=== PATIENT | female | born 1965 | race American Indian/Alaskan Native ===

== ENCOUNTER 2018-09-09 16:33 | Inpatient (IN) | payer MEDICARE ==
[2018-09-09] MEDS ORDERED: NACL 0.9% 1000 ML 1,000 ML IV ONE (17:16)
[2018-09-09 17:31] LABS: Basophils # (Auto) 0.1 K/mm3 (0.0-0.1); Basophils % (Auto) 1.4 % (0.0-1.8); Eosinophils # (Auto) 0.1 K/mm3 (0.0-0.4); Eosinophils % (Auto) 1.1 % (0.0-4.3); Hematocrit 43.3 % (30.3-42.9); Lymphocytes # (Auto) 2.1 K/mm3 (1.2-5.4); Mean Corpuscular HGB Conc 32 % (30-34); Mean Corpuscular Volume 82 fl (79-97); Monocytes # (Auto) 0.4 K/mm3 (0.0-0.8); Monocytes % (Auto) 5.2 % (0.0-7.3); Platelet Count 250 K/mm3 (140-440); Red Blood Count 5.27 M/mm3 (3.65-5.03); Red Cell Distribution Width 13.3 % (13.2-15.2)
--- NOTE | 2018-09-09 17:32 | Emergency Department Report ---
ED Chest Pain HPI - General Stated Complaint: CHEST PAIN Time Seen by Provider: 09/09/18 17:03 - History of Present Illness Initial Comments: This -[place] female presents to the emergency department via EMS with complaint of some midsternal to left-sided chest pain, shortness of breath. She says it is a kicking/tightness sensation. It is intermittent and has been going on for the past month but worsened over the past 24 hours. She did not take anything for her symptoms prior to arrival. She has a past medical history of diabetes, hypertension and COPD but is not oxygen dependent. Her primary care physician is a Dr. Gabriel, and she does not have a animal daycare provider. No recent travel or sick contacts at home. She denies any tobacco or illicit drug use or abuse. - Related Data Home Medications Medication Instructions Recorded Confirmed Last Taken Ipratropium/Albuterol Sulfate 1 ampul INHALATION Q4HR PRN 12/26/15 12/26/15 12/26/15 [Duoneb 0.5 mg-3 mg/3 ml Soln] Previous Rx's Medication Instructions Recorded Last Taken Type ALBUTEROL Inhaler (OR & NICU) 2 puff IH QID PRN #1 inhalation 09/24/15 12/26/15 Rx [ProAir HFA Inhaler] metFORMIN [Glucophage] 500 mg PO BID #60 tablet 09/24/15 12/25/15 Rx HYDROcodone/APAP 5-325 [[place] 1 each PO Q6HR PRN #20 tablet 12/26/15 Unknown Rx 5/325] Ibuprofen [Motrin] 800 mg PO Q8HR PRN #30 tablet 12/26/15 Unknown Rx Allergies Allergy/AdvReac Type Severity Reaction Status Date / Time amlodipine Allergy Coughing Verified 09/09/18 17:29 hydrochlorothiazide Allergy Shortness Verified 09/09/18 17:29 of Breath Heart Score - HEART Score History: Moderately suspicious EKG: Non-specific Age: 45-65 Risk factors: 1-2 risk factors Troponin: < normal limit HEART Score: 4 - Critical Actions Critical Actions: 4-6 pts:12-16.6% risk of adverse cardiac event. Should be admitted ED Review of Systems ROS: Stated complaint: CHEST PAIN Other details as noted in HPI Comment: All other systems reviewed and negative Constitutional: denies: chills, fever Eyes: denies: eye pain, vision change ENT: denies: ear pain, throat pain Respiratory: shortness of breath. denies: cough Cardiovascular: chest pain. denies: edema Gastrointestinal: denies: abdominal pain, vomiting Genitourinary: denies: dysuria, discharge Musculoskeletal: denies: back pain, arthralgia Skin: denies: rash, lesions Neurological: denies: headache, weakness ED Past Medical Hx - Past Medical History Hx Hypertension: Yes Hx Congestive Heart Failure: No (leaky valve) Hx Diabetes: Yes Hx Headaches / Migraines: Yes Hx Asthma: Yes Hx COPD: Yes Hx HIV: No Additional medical history: "Enlarged heart". gastric ulcer - Surgical History Additional Surgical History: tubal ligation - Social History Smoking Status: Former Smoker Substance Use Type: Alcohol - Medications Home Medications: Home Medications Medication Instructions Recorded Confirmed Last Taken Type ALBUTEROL Inhaler (OR & NICU) 2 puff IH QID PRN #1 inhalation 09/24/15 12/26/15 12/26/15 Rx [ProAir HFA Inhaler] metFORMIN [Glucophage] 500 mg PO BID #60 tablet 09/24/15 12/26/15 12/25/15 Rx HYDROcodone/APAP 5-325 [[place] 1 each PO Q6HR PRN #20 tablet 12/26/15 Unknown Rx 5/325] Ibuprofen [Motrin] 800 mg PO Q8HR PRN #30 tablet 12/26/15 Unknown Rx Ipratropium/Albuterol Sulfate 1 ampul INHALATION Q4HR PRN 12/26/15 12/26/15 12/26/15 History [Duoneb 0.5 mg-3 mg/3 ml Soln] ED Physical Exam - Other Other exam information: GENERAL: The patient is well-developed well-nourished. HEENT: Normocephalic. Atraumatic. Patient has moist mucous membranes. EYES: Extraocular motions are intact. Pupils are equal and reactive to light bilaterally. NECK: Supple. Trachea is midline. CHEST/LUNGS: Clear to auscultation. There is no respiratory distress noted. HEART/CARDIOVASCULAR: Regular. There is moderate tachycardia. There is no obvious murmur. ABDOMEN: Abdomen is soft, nontender. Patient has normal bowel sounds. Obese habitus. SKIN: Skin is warm and dry. NEURO: The patient is awake, alert, and oriented. The patient is cooperative. The patient has no focal neurologic deficits. The patient has normal speech. MUSCULOSKELETAL: There is no tenderness or deformity. There is no evidence of acute injury. ED Course Vital Signs 09/09/18 09/09/18 09/09/18 16:52 16:57 17:00 Temperature Pulse Rate 139 H 149 H Respiratory 14 22 20 Rate Blood Pressure 102/80 O2 Sat by Pulse 98 99 99 Oximetry 09/09/18 09/09/18 09/09/18 17:06 17:10 17:16 Temperature Pulse Rate 136 H 142 H Respiratory 24 28 H 19 Rate Blood Pressure 102/80 102/80 102/80 O2 Sat by Pulse 99 99 99 Oximetry 09/09/18 09/09/18 09/09/18 17:20 17:23 17:26 Temperature 97.3 F L Pulse Rate 140 H 144 H 139 H Respiratory 16 22 12 Rate Blood Pressure 102/80 102/80 102/80 O2 Sat by Pulse 98 98 98 Oximetry 09/09/18 09/09/18 09/09/18 17:29 17:30 17:36 Temperature Pulse Rate 138 H Respiratory 20 29 H 12 Rate Blood Pressure 102/80 70/51 O2 Sat by Pulse 98 96 99 Oximetry 09/09/18 09/09/18 09/09/18 17:40 17:46 17:50 Temperature Pulse Rate 150 H 136 H 138 H Respiratory 21 22 20 Rate Blood Pressure 136/71 136/71 102/81 O2 Sat by Pulse 97 99 99 Oximetry 09/09/18 09/09/18 09/09/18 17:56 18:00 18:06 Temperature Pulse Rate 136 H 138 H 142 H Respiratory 18 19 25 H Rate Blood Pressure 102/81 102/81 102/81 O2 Sat by Pulse 98 99 97 Oximetry 09/09/18 09/09/18 09/09/18 18:10 18:16 18:20 Temperature Pulse Rate 141 H 144 H 140 H Respiratory 25 H 15 22 Rate Blood Pressure 102/81 144/121 144/121 O2 Sat by Pulse 99 99 98 Oximetry 09/09/18 09/09/18 09/09/18 18:26 18:28 18:30 Temperature Pulse Rate 145 H 138 H 135 H Respiratory 14 16 Rate Blood Pressure 144/121 144/121 144/121 O2 Sat by Pulse 97 97 Oximetry 09/09/18 09/09/18 09/09/18 18:36 18:40 18:46 Temperature Pulse Rate 133 H Respiratory 15 Rate Blood Pressure 136/70 136/70 85/65 O2 Sat by Pulse 99 97 97 Oximetry 09/09/18 09/09/18 09/09/18 18:50 18:56 19:00 Temperature Pulse Rate Respiratory Rate Blood Pressure 85/65 74/50 74/50 O2 Sat by Pulse 97 98 98 Oximetry 09/09/18 09/09/18 19:06 19:10 Temperature Pulse Rate 139 H 138 H Respiratory 16 14 Rate Blood Pressure 94/72 94/72 O2 Sat by Pulse 99 99 Oximetry - Consultations Consultation #1: 09/09/18 19:55 I spoke with the animal daycare provider nutrition and dietetics instructor, Dr. Barajas, and he listened to the case pr esentation regarding the patient's atrial flutter with RVR and her ED course thus far. He has recommended giving some digoxin 0.25 mg IV and they will see the patient as a consult. EMERSON score - Emerson Score Age > 65: (0) No Aspirin use within the Past 7 Days: (0) No 3 or more CAD Risk Factors: (1) Yes 2 or more Angina events in past 24 hrs: (1) Yes Known CAD with more than 50% Stenosis: (0) No Elevated Cardiac Markers: (0) No ST Deviation Greater than 0.5mm: (0) No EMERSON Score: 2 ED Medical Decision Making - Lab Data Result diagrams: 09/09/18 17:21 09/09/18 17:21 - EKG Data -: EKG Interpreted by Me - EKG Data When compared to previous EKG there are: no significant change (12/2015) Interpretation: other (atrial flutter with 2:1 AV block, LVH, left axis deviation, rate of 136 bpm) - Radiology Data Radiology results: image reviewed interpreted by me: Chest x-ray does not show any pneumothorax, pleural effusion, pneumonia or obvious focal consolidation. - Medical Decision Making Patient presents with some mid to left-sided chest pain and some shortness of breath. She also presents with tachycardia with heart rate of about 140. It appears consistent with atrial flutter on EKG. So far the labs have been mostly unremarkable except for some hyperglycemia with a blood sugar of about 390. There is not any significant elevation in the anion gap and she does not appear to be in diabetic ketoacidosis. She has been given some IV fluid resuscitation and a dose of IV insulin. I attempted some rate control using beta blockers, since the patient is allergic to amlodipine, but it did not appear to change the rate, only drop her blood pressure. Patient has been started on a heparin drip. Cardiology has been contacted and tonsils. The patient has been accepted for admission by the hospitalist, Dr. Kleley. - Differential Diagnosis VT, PE, Costochondritis, Dysrythmia Critical Care Time: Yes Critical care time in (mins) excluding proc time.: 35 Critical care attestation.: If time is entered above; I have spent that time in minutes in the direct care of this critically ill patient, excluding procedure time. Clinical care time was spent on this patient during her initial evaluation, multiple re-evaluations, ordering and interpretation of labs and imaging, discussion with the cardiology service, ordering and administration of medications. Critical Care Time: 35 minutes ED Disposition Clinical Impression: Acute chest pain, Hyperglycemia, Morbid obesity, Atrial flutter with rapid vent ricular response Atrial flutter Qualifiers: Atrial flutter type: unspecified Qualified Code(s): I48.92 - Unspecified atrial flutter Disposition: 09 OP ADMIT IP TO THIS HOSP Is pt being admited?: Yes Condition: Fair Instructions: Chest Pain (ED) Referrals: RISHI HANDY MD [Referring] - 3-5 Days
[2018-09-09 17:55] LABS: BUN/Creatinine Ratio 17; Blood Urea Nitrogen 12 mg/dL (7-17); Calcium 9.2 mg/dL (8.4-10.2); Hemolysis Index 15; Partial Thromboplastin Time 26.3 Sec. (24.2-36.6)
[2018-09-09] MEDS ORDERED: HumuLIN R IV ONE (18:10)
[2018-09-09] MEDS ORDERED: NORMODYNE IV ONE (18:16)
[2018-09-09] MEDS ORDERED: BABY ASPIRIN PO ONE (18:28)
[2018-09-09] MEDS ORDERED: HEPARIN 10,000 UNITS/10 ML IV ONE (18:31)
[2018-09-09] MEDS ORDERED: LANOXIN IV ONE ×3 (19:44→21:29)
[2018-09-09] MEDS ORDERED: SODIUM CHLORIDE FLUSH SYRINGE 10 ML IV PRN (21:23)
[2018-09-09] MEDS ORDERED: DILAUDID IV PRN (21:23)
[2018-09-09] MEDS ORDERED: TYLENOL PO PRN (21:23)
[2018-09-09] MEDS ORDERED: ZOFRAN IV PRN (21:23)
[2018-09-09] MEDS ORDERED: DUONEB *Not for PRN Use IH (21:27)
[2018-09-09] MEDS ORDERED: PROAIR IH PRN (21:27)
[2018-09-09] MEDS ORDERED: PROVENTIL IH PRN (21:44)
[2018-09-09] MEDS ORDERED: HEPARIN 10,000 UNITS/10 ML ONE (21:45)
[2018-09-09] MEDS ORDERED: HEPARIN/ 0.45% NACL-25,000 UNIT/500 ML 25,000 UNIT/500 ML BAG ONE (21:46)
--- NOTE | 2018-09-09 21:51 | History and Physical Report ---
History of Present Illness Date of examination: 09/09/18 Date of admission: 09/09/18 18:19 Chief complaint: Chest pain and palpitations for one month more so for last 24 hours History of present illness: 53-year-old -[place] female with history of diabetes and asthma comes in for palpitations and chest tightness for the last 1 month and more so for last 24 hours. No shortness of breath. No fever or chills. No exacerbating or relieving factors. Chest pain is intermittent. No diaphoresis. Past Medical History Hx Hypertension: Yes Hx Diabetes: Yes Hx Headaches / Migraines: Yes Hx Asthma: Yes Hx COPD: Yes Additional medical history: "Enlarged heart". gastric ulcer Surgical History Additional Surgical History: tubal ligation Social History Smoking Status: Former Smoker Substance Use Type: Alcohol Family history Htn - Medications Home Medications: Home Medications Medication Instructions Recorded Confirmed Last Taken Type ALBUTEROL Inhaler (OR & NICU) 2 puff IH QID PRN #1 inhalation 09/24/15 12/26/15 12/26/15 Rx [ProAir HFA Inhaler] metFORMIN [Glucophage] 500 mg PO BID #60 tablet 09/24/15 12/26/15 12/25/15 Rx HYDROcodone/APAP 5-325 [[place] 1 each PO Q6HR PRN #20 tablet 12/26/15 Unknown Rx 5/325] Ibuprofen [Motrin] 800 mg PO Q8HR PRN #30 tablet 12/26/15 Unknown Rx Ipratropium/Albuterol Sulfate 1 ampul INHALATION Q4HR PRN 12/26/15 12/26/15 12/26/15 History [Duoneb 0.5 mg-3 mg/3 ml Soln] Review of Systems ROS: Stated complaint: CHEST PAIN Other details as noted in HPI Comment: All other systems reviewed and negative Constitutional: denies: chills, fever Eyes: denies: eye pain, vision change ENT: denies: ear pain, throat pain Respiratory: shortness of breath. denies: cough Cardiovascular: chest pain. denies: edema Gastrointestinal: denies: abdominal pain, vomiting Genitourinary: denies: dysuria, discharge Musculoskeletal: denies: back pain, arthralgia Skin: denies: rash, lesions Neurological: denies: headache, weakness Medications and Allergies Allergies Allergy/AdvReac Type Severity Reaction Status Date / Time amlodipine Allergy Coughing Verified 09/09/18 17:29 hydrochlorothiazide Allergy Shortness Verified 09/09/18 17:29 of Breath Home Medications Medication Instructions Recorded Confirmed Last Taken Type ALBUTEROL Inhaler (OR & NICU) 2 puff IH QID PRN #1 inhalation 09/24/15 12/26/15 12/26/15 Rx [ProAir HFA Inhaler] metFORMIN [Glucophage] 500 mg PO BID #60 tablet 09/24/15 12/26/15 12/25/15 Rx HYDROcodone/APAP 5-325 [[place] 1 each PO Q6HR PRN #20 tablet 12/26/15 Unknown Rx 5/325] Ibuprofen [Motrin] 800 mg PO Q8HR PRN #30 tablet 12/26/15 Unknown Rx Ipratropium/Albuterol Sulfate 1 ampul INHALATION Q4HR PRN 12/26/15 12/26/15 12/26/15 History [Duoneb 0.5 mg-3 mg/3 ml Soln] Active Meds: Active Medications Acetaminophen (Tylenol) 650 mg PO Q4H PRN PRN Reason: Pain MILD(1-3)/Fever >100.5/ORNELAS Albuterol (Proair) 2 puff IH QID PRN PRN Reason: Shortness Of Breath Albuterol/Ipratropium (Duoneb *Not For Prn Use*) 1 ampul IH Q4HR PRN PRN Reason: Shortness Of Breath Famotidine (Pepcid) 20 mg IV BID TORSTEN Hydromorphone HCl (Dilaudid) 0.5 mg IV Q3H PRN PRN Reason: Pain , Severe (7-10) Heparin Sodium/Sodium Chloride (Heparin/ 0.45% Nacl-25,000 Unit/500 Ml) 25,000 unit in 500 mls @ 30 mls/hr IV TITR TORSTEN; Protocol Sodium Chloride (Nacl 0.9% 1000 Ml) 1,000 mls @ 42 mls/hr IV DIRECT TORSTEN Metformin HCl (Glucophage) 500 mg PO BID TORSTEN Ondansetron HCl (Zofran) 4 mg IV Q8H PRN PRN Reason: Nausea And Vomiting Oxycodone/Acetaminophen (Percocet 5/325) 1 tab PO Q6H PRN PRN Reason: Pain, Moderate (4-6) Sodium Chloride (Sodium Chloride Flush Syringe 10 Ml) 10 ml IV BID TORSTEN Sodium Chloride (Sodium Chloride Flush Syringe 10 Ml) 10 ml IV PRN PRN PRN Reason: LINE FLUSH Review of Systems All systems: negative Exam - Constitutional Vitals: Temp Pulse Resp BP Pulse Ox 97.3 F L 142 H 19 118/76 97 09/09/18 17:23 09/09/18 21:30 09/09/18 21:30 09/09/18 21:30 09/09/18 21:30 General appearance: Present: mild distress, well-nourished - EENT Eyes: Present: PERRL ENT: hearing intact, clear oral mucosa - Neck Neck: Present: supple, normal ROM - Respiratory Respiratory effort: normal Respiratory: bilateral: CTA - Cardiovascular Heart rate: 130 Rhythm: irregularly irregular Heart Sounds: Present: S1 & S2. Absent: rub, click - Extremities Extremities: no ischemia, pulses intact, pulses symmetrical, No edema Peripheral Pulses: within normal limits - Abdominal General gastrointestinal: Present: soft, non-tender, non-distended, normal bowel sounds Female genitourinary: Present: normal - Integumentary Integumentary: Present: clear, warm, dry - Musculoskeletal Musculoskeletal: gait normal, strength equal bilaterally - Psychiatric Psychiatric: appropriate mood/affect, intact judgment & insight - Neurologic Neurologic: CNII-XII intact, moves all extremities - Allied Health Allied health notes reviewed: nursing, case management Results - Labs CBC & Chem 7: 09/09/18 17:21 09/09/18 17:21 Labs: Laboratory Last Values WBC 8.2 K/mm3 (4.5-11.0) 09/09/18 17:21 RBC 5.27 M/mm3 (3.65-5.03) H 09/09/18 17:21 Hgb 14.0 gm/dl (10.1-14.3) 09/09/18 17:21 Hct 43.3 % (30.3-42.9) H 09/09/18 17:21 MCV 82 fl (79-97) 09/09/18 17:21 MCH 27 pg (28-32) L 09/09/18 17:21 MCHC 32 % (30-34) 09/09/18 17:21 RDW 13.3 % (13.2-15.2) 09/09/18 17:21 Plt Count 250 K/mm3 (140-440) 09/09/18 17:21 Lymph % (Auto) 26.0 % (13.4-35.0) 09/09/18 17:21 [place] % (Auto) 5.2 % (0.0-7.3) 09/09/18 17:21 Eos % (Auto) 1.1 % (0.0-4.3) 09/09/18 17:21 Baso % (Auto) 1.4 % (0.0-1.8) 09/09/18 17:21 Lymph # 2.1 K/mm3 (1.2-5.4) 09/09/18 17:21 [place] # 0.4 K/mm3 (0.0-0.8) 09/09/18 17:21 Eos # 0.1 K/mm3 (0.0-0.4) 09/09/18 17:21 Baso # 0.1 K/mm3 (0.0-0.1) 09/09/18 17:21 Seg Neutrophils % 66.3 % (40.0-70.0) 09/09/18 17:21 Seg Neutrophils # 5.5 K/mm3 (1.8-7.7) 09/09/18 17:21 PT 13.8 Sec. (12.2-14.9) 09/09/18 17:21 INR 1.00 (0.87-1.13) 09/09/18 17:21 APTT 26.3 Sec. (24.2-36.6) 09/09/18 17:21 D-Dimer 147.27 ng/mlDDU (0-234) 09/09/18 17:21 Sodium 137 mmol/L (137-145) 09/09/18 17:21 Potassium 4.4 mmol/L (3.6-5.0) 09/09/18 17:21 Chloride 100.2 mmol/L (98-107) 09/09/18 17:21 Carbon Dioxide 21 mmol/L (22-30) L 09/09/18 17:21 Anion Gap 20 mmol/L 09/09/18 17:21 BUN 12 mg/dL (7-17) 09/09/18 17:21 Creatinine 0.7 mg/dL (0.7-1.2) 09/09/18 17:21 Estimated GFR > 60 ml/min 09/09/18 17:21 BUN/Creatinine Ratio 17 % 09/09/18 17:21 Glucose 389 mg/dL (65-100) H 09/09/18 17:21 POC Glucose 305 (70-105) H 09/09/18 18:28 Calcium 9.2 mg/dL (8.4-10.2) 09/09/18 17:21 Troponin T < 0.010 ng/mL (0.00-0.029) 09/09/18 19:48 - Imaging and Cardiology EKG: report reviewed Imaging and Cardiology: EKG Atrial flutter with 2:1 AV block Heart rate of 136 Chest x-ray No acute findings Assessment and Plan Advance Directives: Yes (full code) VTE prophylaxis?: Chemical (full code) Plan of care discussed with patient/family: Yes - Patient Problems (1) Atrial flutter with rapid ventricular response Current Visit: Yes Status: Acute Plan to address problem: Patient initiated on IV heparin and IV Cardizem IV digoxin 0.25 given 2 hrs apart (2) Acute chest pain Current Visit: Yes Status: Acute Plan to address problem: we will Lexiscan in the morning Serial troponins (3) Type 2 diabetes mellitus Current Visit: Yes Status: Chronic Qualifiers: Diabetes mellitus jail insulin use: without jail use Plan to address problem: Continue metformin and coverage Check A1c (4) Asthma Current Visit: Yes Status: Inactive Qualifiers: Asthma severity: mild Asthma complication type: unspecified Plan to address problem: Continue bronchodilators when necessary (5) DVT prophylaxis Current Visit: Yes Status: Acute Plan to address problem: (Patient on heparin and GI prophylaxis
[2018-09-09] MEDS: HEPARIN/ 0.45% NACL-25,000 UNIT/500 ML 25,000 UNIT/500 ML BAG IV SCH (21:55)
[2018-09-09] MEDS ORDERED: CARDIZEM/D5W 100MG/100ML 100 MG/100 ML BAG IV SCH (22:00)
[2018-09-09] MEDS ORDERED: NACL 0.9% 1000 ML 1,000 ML IV SCH (22:00)
[2018-09-10] MEDS: PERCOCET 5/325 PO PRN ×3 (02:41→21:55)
[2018-09-10 04:07] LABS: Basophils # (Auto) 0.1 K/mm3 (0.0-0.1); Eosinophils # (Auto) 0.1 K/mm3 (0.0-0.4); Eosinophils % (Auto) 1.3 % (0.0-4.3); Hematocrit 39.8 % (30.3-42.9); Hemoglobin 12.7 gm/dl (10.1-14.3); Lymphocytes # (Auto) 3.2 K/mm3 (1.2-5.4); Lymphocytes % (Auto) 33.5 % (13.4-35.0); Mean Corpuscular HGB Conc 32 % (30-34); Mean Corpuscular Volume 82 fl (79-97); Monocytes # (Auto) 0.5 K/mm3 (0.0-0.8); Monocytes % (Auto) 5.5 % (0.0-7.3); Platelet Count 234 K/mm3 (140-440); Red Blood Count 4.83 M/mm3 (3.65-5.03); Red Cell Distribution Width 13.4 % (13.2-15.2)
[2018-09-10 04:31] LABS: Alanine Aminotransferase 22 units/L (7-56); Albumin 3.8 g/dL (3.9-5); BUN/Creatinine Ratio 22; Blood Urea Nitrogen 13 mg/dL (7-17); Calcium 8.8 mg/dL (8.4-10.2); Hemolysis Index 6
[2018-09-10] MEDS: HumaLOG SUB-Q SCH ×5 (08:22→19:51)
[2018-09-10] MEDS: PEPCID IV SCH ×2 (10:46→21:58)
[2018-09-10] MEDS: CORDARONE PO SCH ×2 (10:46→21:56)
[2018-09-10] MEDS: GLUCOPHAGE PO SCH ×3 (10:50→21:58)
[2018-09-10] MEDS: SODIUM CHLORIDE FLUSH SYRINGE 10 ML IV SCH ×2 (10:55→21:58)
--- NOTE | 2018-09-10 14:20 | Consultation ---
History of Present Illness Consult date: 09/10/18 History of present illness: full note dictated. Medications and Allergies Allergies Allergy/AdvReac Type Severity Reaction Status Date / Time amlodipine Allergy Coughing Verified 09/09/18 17:29 hydrochlorothiazide Allergy Shortness Verified 09/09/18 17:29 of Breath Home Medications Medication Instructions Recorded Confirmed Last Taken Type ALBUTEROL Inhaler (OR & NICU) 2 puff IH QID PRN #1 inhalation 09/24/15 09/10/18 12/26/15 Rx [ProAir HFA Inhaler] metFORMIN [Glucophage] 500 mg PO BID #60 tablet 09/24/15 09/10/18 09/09/18 Rx HYDROcodone/APAP 5-325 [[place] 1 each PO Q6HR PRN #20 tablet 12/26/15 09/10/18 Unknown Rx 5/325] Ibuprofen [Motrin] 800 mg PO Q8HR PRN #30 tablet 12/26/15 09/10/18 Unknown Rx Ipratropium/Albuterol Sulfate 1 ampul INHALATION Q4HR PRN 12/26/15 09/10/18 12/26/15 History [Duoneb 0.5 mg-3 mg/3 ml Soln] Active Meds: Active Medications Acetaminophen (Tylenol) 650 mg PO Q4H PRN PRN Reason: Pain MILD(1-3)/Fever >100.5/ORNELAS Albuterol (Proventil) 2.5 mg IH QIDRT PRN PRN Reason: Shortness Of Breath Albuterol/Ipratropium (Duoneb *Not For Prn Use*) 1 ampul IH Q4HR PRN PRN Reason: Shortness Of Breath Amiodarone HCl (Cordarone) 200 mg PO BID [facility] Last Admin: 09/10/18 10:46 Dose: 200 mg Documented by: Famotidine (Pepcid) 20 mg IV BID [facility] Last Admin: 09/10/18 10:46 Dose: 20 mg Documented by: Hydromorphone HCl (Dilaudid) 0.5 mg IV Q3H PRN PRN Reason: Pain , Severe (7-10) Heparin Sodium/Sodium Chloride (Heparin/ 0.45% Nacl-25,000 Unit/500 Ml) 25,000 unit in 500 mls @ 30 mls/hr IV TITR TORSTEN; Protocol Last Titration: 09/10/18 04:32 Dose: 1,500 units/hr, 30 mls/hr Documented by: Sodium Chloride (Nacl 0.9% 1000 Ml) 1,000 mls @ 42 mls/hr IV DIRECT TORSTEN Last Admin: 09/10/18 02:56 Dose: 42 mls/hr Documented by: Diltiazem HCl (Cardizem/D5w 100mg/100ml) 100 mg in 100 mls @ 5 mls/hr IV TITR TORSTEN; Protocol Insulin Human Lispro (Humalog) 0 unit SUB-Q ACHS TORSTEN; Protocol Last Admin: 09/10/18 11:01 Dose: 4 unit Documented by: Metformin HCl (Glucophage) 500 mg PO BID TORSTEN Last Admin: 09/10/18 10:50 Dose: 500 mg Documented by: Ondansetron HCl (Zofran) 4 mg IV Q8H PRN PRN Reason: Nausea And Vomiting Oxycodone/Acetaminophen (Percocet 5/325) 1 tab PO Q6H PRN PRN Reason: Pain, Moderate (4-6) Last Admin: 09/10/18 10:47 Dose: 1 tab Documented by: Sodium Chloride (Sodium Chloride Flush Syringe 10 Ml) 10 ml IV BID TORSTEN Last Admin: 09/10/18 10:55 Dose: 10 ml Documented by: Sodium Chloride (Sodium Chloride Flush Syringe 10 Ml) 10 ml IV PRN PRN PRN Reason: LINE FLUSH Physical Examination Vital Signs Resp Pulse Ox 14 98 09/09/18 16:52 09/09/18 16:52 Results 09/10/18 03:51 09/10/18 03:51 Cardiac Enzymes 09/10/18 Range/Units 03:51 AST 20 (5-40) units/L Coagulation 09/09/18 Range/Units 17:21 PT 13.8 (12.2-14.9) Sec. INR 1.00 (0.87-1.13) APTT 26.3 (24.2-36.6) Sec. CBC 09/09/18 09/10/18 Range/Units 17:21 03:51 WBC 8.2 9.5 (4.5-11.0) K/mm3 RBC 5.27 H 4.83 (3.65-5.03) M/mm3 Hgb 14.0 12.7 (10.1-14.3) gm/dl Hct 43.3 H 39.8 (30.3-42.9) % Plt Count 250 234 (140-440) K/mm3 Lymph # 2.1 3.2 (1.2-5.4) K/mm3 [place] # 0.4 0.5 (0.0-0.8) K/mm3 Eos # 0.1 0.1 (0.0-0.4) K/mm3 Baso # 0.1 0.1 (0.0-0.1) K/mm3 Comprehensive Metabolic Panel 09/09/18 09/10/18 Range/Units 17:21 03:51 Sodium 137 134 L (137-145) mmol/L Potassium 4.4 4.1 (3.6-5.0) mmol/L Chloride 100.2 99.5 (98-107) mmol/L Carbon Dioxide 21 L 23 (22-30) mmol/L BUN 12 13 (7-17) mg/dL Creatinine 0.7 0.6 L (0.7-1.2) mg/dL Glucose 389 H 316 H (65-100) mg/dL Calcium 9.2 8.8 (8.4-10.2) mg/dL AST 20 (5-40) units/L ALT 22 (7-56) units/L Alkaline Phosphatase 117 (35-129) units/L Total Protein 6.7 (6.3-8.2) g/dL Albumin 3.8 L (3.9-5) g/dL
--- NOTE | 2018-09-10 17:52 | Progress Note ---
Assessment and Plan Assessment and plan: Patient is a 53 yo woman with a history of hypertension, dm type 2, migraines and asthma who presented to [facility] ED with palpitations -Atrial flutter with rapid ventricular response: Patient initiated on IV heparin and IV Cardizem, IV digoxin 0.25 given 2 hrs apart, Cardiology is following, start Warfarin -Acute chest pain: Cardiology following, Serial troponins -Type 2 diabetes mellitus: Continue metformin and coverage, Check A1c -Asthma: Continue bronchodilators when necessary -Morbid obesity, bmi 41.6: lifestyle modification -DVT prophylaxis: iv heparin drip History Interval history: Patient was seen and examined. Follow-up on current diagnosis of AFib/aflutter. Overnight uneventful. Patient denies any chest pain, shortness breath, nausea/vomiting or severe headaches. Imaging, nursing note, chart, labs and old chart reviewed. Discussed with patient. Hospitalist Physical - Physical exam Narrative exam: Gen: WDWN, NAD, Awake, Alert, Orientated x 3, bmi 41.6 HEENT: NCAT, EOMI, PERRL, OP Clear Neck: supple, no adenopathy, no thyromegaly, no JVD CVS/Heart: irregular, normal S1S2, pulses present bilaterally Chest/Lungs: CTA B, Symmetrical chest expansion, good air entry bilaterally GI/Abdomen: soft, NTND, good bowel sounds, no guarding or rebound /Bladder: no suprapubic tenderness, no CVA or paraspinal tenderness Extermity/Skin: no c/c/e, no obvious rash MSK: FROM x 4 Neuro: CN 2-12 grossly intact, no new focal deficits Psych: calm - Constitutional Vitals: Temp Pulse Resp BP Pulse Ox 98.0 F 86 20 136/83 93 09/10/18 04:41 09/10/18 12:12 09/10/18 04:41 09/10/18 12:12 09/10/18 12:12 General appearance: Present: mild distress, well-nourished Results - Labs CBC & Chem 7: 09/10/18 03:51 09/10/18 03:51 Labs: Laboratory Last Values WBC 9.5 K/mm3 (4.5-11.0) 09/10/18 03:51 RBC 4.83 M/mm3 (3.65-5.03) 09/10/18 03:51 Hgb 12.7 gm/dl (10.1-14.3) 09/10/18 03:51 Hct 39.8 % (30.3-42.9) 09/10/18 03:51 MCV 82 fl (79-97) 09/10/18 03:51 MCH 26 pg (28-32) L 09/10/18 03:51 MCHC 32 % (30-34) 09/10/18 03:51 RDW 13.4 % (13.2-15.2) 09/10/18 03:51 Plt Count 234 K/mm3 (140-440) 09/10/18 03:51 Lymph % (Auto) 33.5 % (13.4-35.0) 09/10/18 03:51 [place] % (Auto) 5.5 % (0.0-7.3) 09/10/18 03:51 Eos % (Auto) 1.3 % (0.0-4.3) 09/10/18 03:51 Baso % (Auto) 1.0 % (0.0-1.8) 09/10/18 03:51 Lymph # 3.2 K/mm3 (1.2-5.4) 09/10/18 03:51 [place] # 0.5 K/mm3 (0.0-0.8) 09/10/18 03:51 Eos # 0.1 K/mm3 (0.0-0.4) 09/10/18 03:51 Baso # 0.1 K/mm3 (0.0-0.1) 09/10/18 03:51 Seg Neutrophils % 58.7 % (40.0-70.0) 09/10/18 03:51 Seg Neutrophils # 5.6 K/mm3 (1.8-7.7) 09/10/18 03:51 PT 13.8 Sec. (12.2-14.9) 09/09/18 17:21 INR 1.00 (0.87-1.13) 09/09/18 17:21 APTT 26.3 Sec. (24.2-36.6) 09/09/18 17:21 D-Dimer 147.27 ng/mlDDU (0-234) 09/09/18 17:21 Heparin Anti-Xa Level 0.66 U.I./ml (0.3-0.7) 09/10/18 03:51 Sodium 134 mmol/L (137-145) L 09/10/18 03:51 Potassium 4.1 mmol/L (3.6-5.0) 09/10/18 03:51 Chloride 99.5 mmol/L (98-107) 09/10/18 03:51 Carbon Dioxide 23 mmol/L (22-30) 09/10/18 03:51 Anion Gap 16 mmol/L 09/10/18 03:51 BUN 13 mg/dL (7-17) 09/10/18 03:51 Creatinine 0.6 mg/dL (0.7-1.2) L 09/10/18 03:51 Estimated GFR > 60 ml/min 09/10/18 03:51 BUN/Creatinine Ratio 22 % 09/10/18 03:51 Glucose 316 mg/dL (65-100) H 09/10/18 03:51 POC Glucose 319 (70-105) H 09/10/18 16:47 Hemoglobin A1c 10.9 % (4-6) H 09/09/18 17:21 Calcium 8.8 mg/dL (8.4-10.2) 09/10/18 03:51 Total Bilirubin 0.40 mg/dL (0.1-1.2) 09/10/18 03:51 AST 20 units/L (5-40) 09/10/18 03:51 ALT 22 units/L (7-56) 09/10/18 03:51 Alkaline Phosphatase 117 units/L (35-129) 09/10/18 03:51 Troponin T < 0.010 ng/mL (0.00-0.029) 09/10/18 00:37 Total Protein 6.7 g/dL (6.3-8.2) 09/10/18 03:51 Albumin 3.8 g/dL (3.9-5) L 09/10/18 03:51 Albumin/Globulin Ratio 1.3 % 09/10/18 03:51
[2018-09-10] MEDS ORDERED: COUMADIN PO ONE (19:00)
[2018-09-10] MEDS: HEPARIN/ 0.45% NACL-25,000 UNIT/500 ML 25,000 UNIT/500 ML BAG IV SCH (19:13)
--- NOTE | 2018-09-10 20:30 | Consultation ---
HISTORY OF PRESENT ILLNESS: This is a 53-year-old patient who moved from [place] to [place] in 2008. She has a history of sleep apnea, COPD, not using CPAP, and diabetes mellitus since 2006, came in with palpitations and shortness of breath and left-sided chest tightness. This has been going on for last 1 month, but got worse for the last couple of days. The patient has been seen by us in 2016. At that time, her myocardial perfusion scan was minimally positive for ischemia. I could not get the report on the previous documentation. MEDICATION: The patient is taking DuoNeb p.r.n. PAST MEDICAL HISTORY: She has not had any past history of atrial fibrillation or heart failure. ALLERGIES: AMLODIPINE CAUSES COUGH. HYDROCHLOROTHIAZIDE CAUSES SHORTNESS OF BREATH. SOCIAL HISTORY: The patient quit smoking in 2008. She had a strep throat in 2016 when she came to Emergency Department with fever and cough. REVIEW OF SYSTEMS: GENERAL: No history of fever or chills. CARDIOPULMONARY: See history of present illness. GASTROINTESTINAL: No nausea, vomiting or abdominal pain. GENITOURINARY: No symptoms. No history of thyroid disease. PHYSICAL EXAMINATION: GENERAL: The patient is morbidly obese. No acute distress. She is on IV Cardizem drip. NECK: No JVP elevation, no bruits. CARDIOVASCULAR SYSTEM: PMI is not palpable. Heart sounds heard with no murmurs or gallops. LUNGS: Clear. ABDOMEN: Obese. Liver is not palpable. EXTREMITIES: No edema. Good pulses. LABORATORY DATA: White cell count is 9500. Hemoglobin 12.7 grams percent. Sodium is 134. BUN is 13, creatinine 0.6, glucose is 360 mg percent. DIAGNOSTIC DATA: Chest x-ray, no evidence of failure. EKG revealed atrial flutter with rapid ventricular rate, nonspecific ST changes. The patient is in sinus rhythm now. IMPRESSION: 1. Atrial flutter with rapid ventricular rate, converted to sinus rhythm with digoxin and Cardizem. 2. Chest pain may be related to atrial flutter with rapid ventricular rate. Check serial troponins. 3. Prediabetes mellitus type 2, out of control. 4. History of chronic obstructive pulmonary disease and asthma. DISCUSSION: At this time, I would discontinue amiodarone and heparin and start her on Eliquis 5 mg twice a day for atrial flutter, which has been off and on, present for 1 month. She has AUGUSTINE score of 4. PLAN: We will decide about Lexiscan for Wednesday depending on her hospital course. JOB# [id number] ENMANUEL/ADDY
[2018-09-11] MEDS: HumaLOG SUB-Q SCH ×6 (00:23→21:38)
[2018-09-11 06:00] LABS: Hemoglobin 12.3 gm/dl (10.1-14.3); Mean Corpuscular HGB Conc 33 % (30-34); Mean Corpuscular Volume 81 fl (79-97); Platelet Count 194 K/mm3 (140-440); Red Blood Count 4.54 M/mm3 (3.65-5.03); Red Cell Distribution Width 13.6 % (13.2-15.2)
[2018-09-11 07:04] LABS: BUN/Creatinine Ratio 17; Blood Urea Nitrogen 10 mg/dL (7-17); Hemolysis Index 14
[2018-09-11] MEDS: CORDARONE PO SCH ×3 (09:11→21:38)
[2018-09-11] MEDS: HEPARIN/ 0.45% NACL-25,000 UNIT/500 ML 25,000 UNIT/500 ML BAG IV SCH (09:11)
[2018-09-11] MEDS: PEPCID IV SCH ×2 (09:11→21:38)
[2018-09-11] MEDS: GLUCOPHAGE PO SCH ×2 (09:12→21:38)
[2018-09-11] MEDS: SODIUM CHLORIDE FLUSH SYRINGE 10 ML IV SCH ×3 (10:24→21:37)
--- NOTE | 2018-09-11 11:09 | Progress Note ---
Assessment and Plan Atrial Flutter converted SR H/O sleep apnea , not using CPAP. Morbid obesity. H/O asthma. Subjective Date of service: 09/11/18 Interval history: C/O headache. No palpitations. Objective Vital Signs Temp Pulse Resp BP Pulse Ox 09/11/18 05:13 98.4 F 68 20 132/76 95 09/11/18 05:00 63 09/10/18 23:46 98.3 F 67 20 123/67 94 09/10/18 20:11 98.5 F 78 20 123/64 96 09/10/18 16:43 75 115/74 97 09/10/18 16:00 70 09/10/18 12:12 86 136/83 93 - Physical Examination General: Appears Well, No Apparent Distress HEENT: Positive: Normocephaly, Mucus Membranes Moist Neck: Positive: neck supple, trachea midline. Negative: JVD/HJR Cardiac: Positive: Regular Rate, S1/S2, S4 Lungs: Positive: clear to auscultation, Normal Breath Sounds - Labs and Meds Coagulation 09/11/18 Range/Units 05:46 PT 13.8 (12.2-14.9) Sec. INR 1.00 (0.87-1.13) CBC 09/11/18 Range/Units 05:46 WBC 7.0 (4.5-11.0) K/mm3 RBC 4.54 (3.65-5.03) M/mm3 Hgb 12.3 (10.1-14.3) gm/dl Hct 37.0 (30.3-42.9) % Plt Count 194 (140-440) K/mm3 Comprehensive Metabolic Panel 09/11/18 Range/Units 05:46 Sodium 139 (137-145) mmol/L Potassium 4.2 (3.6-5.0) mmol/L Chloride 101.4 (98-107) mmol/L Carbon Dioxide 25 (22-30) mmol/L BUN 10 (7-17) mg/dL Creatinine 0.6 L (0.7-1.2) mg/dL Glucose 195 H (65-100) mg/dL Calcium 9.0 (8.4-10.2) mg/dL - Imaging and Cardiology EKG: report reviewed - Telemetry EKG Rhythm: Sinus Rhythm
--- NOTE | 2018-09-11 15:57 | Progress Note ---
Assessment and Plan Assessment and plan: Patient is a 53 yo woman with a history of hypertension, dm type 2, migraines and asthma who presented to [facility] ED with palpitations -Atrial flutter with rapid ventricular response: Patient initiated on IV heparin and IV Cardizem, IV digoxin 0.25 given 2 hrs apart, Cardiology is following, start Warfarin day 2 -Acute chest pain: Cardiology following, Serial troponins -Type 2 diabetes mellitus: Continue metformin and coverage, Check A1c -Asthma: Continue bronchodilators when necessary -Morbid obesity, bmi 41.6: lifestyle modification -DVT prophylaxis: iv heparin drip possibly d/c tomorrow on Eliquis if ok with Cardiology, if not continue iv hepar in/coumadin bridge History Interval history: Patient was seen and examined. Follow-up on current diagnosis of AFib/aflutter. Overnight uneventful. Patient denies any chest pain, shortness breath, nausea/vomiting or severe headaches. Imaging, nursing note, chart, labs and old chart reviewed. Discussed with patient. Hospitalist Physical - Physical exam Narrative exam: Gen: WDWN, NAD, Awake, Alert, Orientated x 3, bmi 41.6 HEENT: NCAT, EOMI, PERRL, OP Clear Neck: supple, no adenopathy, no thyromegaly, no JVD CVS/Heart: RRR today normal S1S2, pulses present bilaterally Chest/Lungs: CTA B, Symmetrical chest expansion, good air entry bilaterally GI/Abdomen: soft, NTND, good bowel sounds, no guarding or rebound /Bladder: no suprapubic tenderness, no CVA or paraspinal tenderness Extermity/Skin: no c/c/e, no obvious rash MSK: FROM x 4 Neuro: CN 2-12 grossly intact, no new focal deficits Psych: calm - Constitutional Vitals: Temp Pulse Resp BP Pulse Ox 98.4 F 68 20 132/76 97 09/11/18 05:13 09/11/18 05:13 09/11/18 05:13 09/11/18 05:13 09/11/18 11:24 General appearance: Present: mild distress, well-nourished Results - Labs CBC & Chem 7: 09/11/18 05:46 09/11/18 05:46 Labs: Laboratory Last Values WBC 7.0 K/mm3 (4.5-11.0) 09/11/18 05:46 RBC 4.54 M/mm3 (3.65-5.03) 09/11/18 05:46 Hgb 12.3 gm/dl (10.1-14.3) 09/11/18 05:46 Hct 37.0 % (30.3-42.9) 09/11/18 05:46 MCV 81 fl (79-97) 09/11/18 05:46 MCH 27 pg (28-32) L 09/11/18 05:46 MCHC 33 % (30-34) 09/11/18 05:46 RDW 13.6 % (13.2-15.2) 09/11/18 05:46 Plt Count 194 K/mm3 (140-440) 09/11/18 05:46 Lymph % (Auto) 33.5 % (13.4-35.0) 09/10/18 03:51 [place] % (Auto) 5.5 % (0.0-7.3) 09/10/18 03:51 Eos % (Auto) 1.3 % (0.0-4.3) 09/10/18 03:51 Baso % (Auto) 1.0 % (0.0-1.8) 09/10/18 03:51 Lymph # 3.2 K/mm3 (1.2-5.4) 09/10/18 03:51 [place] # 0.5 K/mm3 (0.0-0.8) 09/10/18 03:51 Eos # 0.1 K/mm3 (0.0-0.4) 09/10/18 03:51 Baso # 0.1 K/mm3 (0.0-0.1) 09/10/18 03:51 Seg Neutrophils % 58.7 % (40.0-70.0) 09/10/18 03:51 Seg Neutrophils # 5.6 K/mm3 (1.8-7.7) 09/10/18 03:51 PT 13.8 Sec. (12.2-14.9) 09/11/18 05:46 INR 1.00 (0.87-1.13) 09/11/18 05:46 APTT 26.3 Sec. (24.2-36.6) 09/09/18 17:21 D-Dimer 147.27 ng/mlDDU (0-234) 09/09/18 17:21 Heparin Anti-Xa Level 0.45 U.I./ml (0.3-0.7) 09/11/18 05:46 Sodium 139 mmol/L (137-145) 09/11/18 05:46 Potassium 4.2 mmol/L (3.6-5.0) 09/11/18 05:46 Chloride 101.4 mmol/L (98-107) 09/11/18 05:46 Carbon Dioxide 25 mmol/L (22-30) 09/11/18 05:46 Anion Gap 17 mmol/L 09/11/18 05:46 BUN 10 mg/dL (7-17) 09/11/18 05:46 Creatinine 0.6 mg/dL (0.7-1.2) L 09/11/18 05:46 Estimated GFR > 60 ml/min 09/11/18 05:46 BUN/Creatinine Ratio 17 % 09/11/18 05:46 Glucose 195 mg/dL (65-100) H 09/11/18 05:46 POC Glucose 265 (70-105) H 09/11/18 12:22 Hemoglobin A1c 10.9 % (4-6) H 09/09/18 17:21 Calcium 9.0 mg/dL (8.4-10.2) 09/11/18 05:46 Magnesium 1.80 mg/dL (1.7-2.3) 09/11/18 05:46 Total Bilirubin 0.40 mg/dL (0.1-1.2) 09/10/18 03:51 AST 20 units/L (5-40) 09/10/18 03:51 ALT 22 units/L (7-56) 09/10/18 03:51 Alkaline Phosphatase 117 units/L (35-129) 09/10/18 03:51 Troponin T < 0.010 ng/mL (0.00-0.029) 09/10/18 00:37 Total Protein 6.7 g/dL (6.3-8.2) 09/10/18 03:51 Albumin 3.8 g/dL (3.9-5) L 09/10/18 03:51 Albumin/Globulin Ratio 1.3 % 09/10/18 03:51
[2018-09-11] MEDS ORDERED: COUMADIN PO SCH ×2 (17:00)
[2018-09-12] MEDS: HEPARIN/ 0.45% NACL-25,000 UNIT/500 ML 25,000 UNIT/500 ML BAG IV SCH ×2 (00:29→21:42)
[2018-09-12] MEDS: PERCOCET 5/325 PO PRN (00:30)
[2018-09-12 06:18] LABS: INR 1.12 (0.87-1.13)
[2018-09-12] MEDS: CORDARONE PO SCH ×2 (09:30→21:40)
[2018-09-12] MEDS: PEPCID IV SCH ×2 (09:30→21:41)
[2018-09-12] MEDS: HumaLOG SUB-Q SCH ×4 (09:30→21:41)
[2018-09-12] MEDS: GLUCOPHAGE PO SCH ×2 (09:30→21:40)
--- NOTE | 2018-09-12 12:32 | Progress Note ---
Assessment and Plan 53yo AAF: 1. Atrial Flutter converted SR (high CHADS score) 2. H/O sleep apnea , not using CPAP. 3. Morbid obesity. 4. H/O asthma. d/c coumadin and cont iv heparin if stress mpi wnl in am, will start doac d/c cardizen gtt and start po d/c amio in am if hr remains stable check tte stress mpi in am d/w pt at length Subjective Date of service: 09/12/18 Interval history: feels a lot better no palp/cp/sob Objective Vital Signs Temp Pulse Resp BP BP Pulse Ox 09/12/18 08:40 98.6 F 73 20 116/61 94 09/12/18 04:19 98.1 F 58 L 0 L 182/97 100 09/12/18 00:31 97.7 F 67 17 148/63 96 09/11/18 23:30 65 97 09/11/18 20:24 97.8 F 65 18 149/82 98 09/11/18 20:00 73 09/11/18 17:00 65 - Physical Examination General: Appears Well, No Apparent Distress HEENT: Positive: Normocephaly, Mucus Membranes Moist Neck: Positive: neck supple, trachea midline. Negative: JVD/HJR - Labs and Meds Coagulation 09/12/18 Range/Units 04:56 PT 15.1 H (12.2-14.9) Sec. INR 1.12 (0.87-1.13) - Imaging and Cardiology EKG: report reviewed
--- NOTE | 2018-09-12 12:56 | Progress Note ---
Assessment and Plan Assessment and plan: Patient is a 53 yo woman with a history of hypertension, dm type 2, migraines and asthma who presented to [facility] ED with palpitations -Atrial flutter with rapid ventricular response, resolved: Cardiology is following -Acute chest pain: Cardiology following, Serial troponins -Type 2 diabetes mellitus: Continue metformin and coverage, Check A1c -Asthma: Continue bronchodilators when necessary -Morbid obesity, bmi 41.6: lifestyle modification -DVT prophylaxis: iv heparin drip Plan per Cardiology, d/c coumadin and cont iv heparin, if stress mpi wnl in am, will start doac, d/c cardizen gtt and start po, d/c amio in am if hr remains stable, check tte, stress mpi in am History Interval history: Patient was seen and examined. Follow-up on current diagnosis of AFib/aflutter. Overnight uneventful. Patient denies any chest pain, shortness breath, nausea/vomiting or severe headaches. Imaging, nursing note, chart, labs and old chart reviewed. Discussed with patient. Hospitalist Physical - Physical exam Narrative exam: Gen: WDWN, NAD, Awake, Alert, Orientated x 3, bmi 45 HEENT: NCAT, EOMI, PERRL, OP Clear Neck: supple, no adenopathy, no thyromegaly, no JVD CVS/Heart: RRR today normal S1S2, pulses present bilaterally Chest/Lungs: CTA B, Symmetrical chest expansion, good air entry bilaterally GI/Abdomen: soft, NTND, good bowel sounds, no guarding or rebound /Bladder: no suprapubic tenderness, no CVA or paraspinal tenderness Extermity/Skin: no c/c/e, no obvious rash MSK: FROM x 4 Neuro: CN 2-12 grossly intact, no new focal deficits Psych: calm - Constitutional Vitals: Temp Pulse Resp BP Pulse Ox 98.6 F 73 20 116/61 94 09/12/18 08:40 09/12/18 08:40 09/12/18 08:40 09/12/18 08:40 09/12/18 08:40 General appearance: Present: no acute distress, well-nourished. Absent: mild distress Results - Labs CBC & Chem 7: 09/11/18 05:46 09/11/18 05:46 Labs: Laboratory Last Values WBC 7.0 K/mm3 (4.5-11.0) 09/11/18 05:46 RBC 4.54 M/mm3 (3.65-5.03) 09/11/18 05:46 Hgb 12.3 gm/dl (10.1-14.3) 09/11/18 05:46 Hct 37.0 % (30.3-42.9) 09/11/18 05:46 MCV 81 fl (79-97) 09/11/18 05:46 MCH 27 pg (28-32) L 09/11/18 05:46 MCHC 33 % (30-34) 09/11/18 05:46 RDW 13.6 % (13.2-15.2) 09/11/18 05:46 Plt Count 194 K/mm3 (140-440) 09/11/18 05:46 Lymph % (Auto) 33.5 % (13.4-35.0) 09/10/18 03:51 [place] % (Auto) 5.5 % (0.0-7.3) 09/10/18 03:51 Eos % (Auto) 1.3 % (0.0-4.3) 09/10/18 03:51 Baso % (Auto) 1.0 % (0.0-1.8) 09/10/18 03:51 Lymph # 3.2 K/mm3 (1.2-5.4) 09/10/18 03:51 [place] # 0.5 K/mm3 (0.0-0.8) 09/10/18 03:51 Eos # 0.1 K/mm3 (0.0-0.4) 09/10/18 03:51 Baso # 0.1 K/mm3 (0.0-0.1) 09/10/18 03:51 Seg Neutrophils % 58.7 % (40.0-70.0) 09/10/18 03:51 Seg Neutrophils # 5.6 K/mm3 (1.8-7.7) 09/10/18 03:51 PT 15.1 Sec. (12.2-14.9) H 09/12/18 04:56 INR 1.12 (0.87-1.13) 09/12/18 04:56 APTT 26.3 Sec. (24.2-36.6) 09/09/18 17:21 D-Dimer 147.27 ng/mlDDU (0-234) 09/09/18 17:21 Heparin Anti-Xa Level 0.43 U.I./ml (0.3-0.7) 09/12/18 04:56 Sodium 139 mmol/L (137-145) 09/11/18 05:46 Potassium 4.2 mmol/L (3.6-5.0) 09/11/18 05:46 Chloride 101.4 mmol/L (98-107) 09/11/18 05:46 Carbon Dioxide 25 mmol/L (22-30) 09/11/18 05:46 Anion Gap 17 mmol/L 09/11/18 05:46 BUN 10 mg/dL (7-17) 09/11/18 05:46 Creatinine 0.6 mg/dL (0.7-1.2) L 09/11/18 05:46 Estimated GFR > 60 ml/min 09/11/18 05:46 BUN/Creatinine Ratio 17 % 09/11/18 05:46 Glucose 195 mg/dL (65-100) H 09/11/18 05:46 POC Glucose 215 (70-105) H 09/12/18 12:06 Hemoglobin A1c 10.9 % (4-6) H 09/09/18 17:21 Calcium 9.0 mg/dL (8.4-10.2) 09/11/18 05:46 Magnesium 1.80 mg/dL (1.7-2.3) 09/11/18 05:46 Total Bilirubin 0.40 mg/dL (0.1-1.2) 09/10/18 03:51 AST 20 units/L (5-40) 09/10/18 03:51 ALT 22 units/L (7-56) 09/10/18 03:51 Alkaline Phosphatase 117 units/L (35-129) 09/10/18 03:51 Troponin T < 0.010 ng/mL (0.00-0.029) 09/10/18 00:37 Total Protein 6.7 g/dL (6.3-8.2) 09/10/18 03:51 Albumin 3.8 g/dL (3.9-5) L 09/10/18 03:51 Albumin/Globulin Ratio 1.3 % 09/10/18 03:51
[2018-09-12] MEDS: CARDIZEM PO SCH ×2 (13:11→23:28)
[2018-09-12] MEDS: SODIUM CHLORIDE FLUSH SYRINGE 10 ML IV SCH ×2 (13:13→21:42)
--- NOTE | 2018-09-12 14:14 | XRay Report ---
FINAL REPORT EXAM: XR CHEST 1V AP HISTORY: Chest Pain TECHNIQUE: AP portable view of the chest PRIORS: CXR 08/16/2015 FINDINGS: Lines, tubes, and devices: N/A Lungs and pleura: Trachea is normal in position. Lungs are clear of infiltrate, pleural effusion, vas cular congestion, or pneumothorax. No change. Cardiomediastinal silhouette: Cardiac and mediastinal silhouettes are unremarkable. Other: Bony structures are intact. IMPRESSION: No acute cardiopulmonary process seen. No change.
[2018-09-13] MEDS: CARDIZEM PO SCH ×2 (00:57→05:50)
[2018-09-13 06:11] LABS: Hematocrit 36.6 % (30.3-42.9); Hemoglobin 11.8 gm/dl (10.1-14.3)
[2018-09-13 06:20] LABS: INR 1.22 (0.87-1.13)
[2018-09-13] MEDS: HumaLOG SUB-Q SCH ×2 (08:13→12:12)
[2018-09-13] MEDS ORDERED: LEXISCAN IV ONE ×2 (08:34→08:35)
[2018-09-13 09:46] VITALS: BP 133/92
[2018-09-13] MEDS: CORDARONE PO SCH (10:34)
[2018-09-13] MEDS: GLUCOPHAGE PO SCH (10:35)
[2018-09-13] MEDS: SODIUM CHLORIDE FLUSH SYRINGE 10 ML IV SCH (10:38)
--- NOTE | 2018-09-13 10:49 | Progress Note ---
Assessment and Plan 53yo AAF: 1. Atrial Flutter converted SR (high CHADS score) 2. H/O sleep apnea , not using CPAP. 3. Morbid obesity. 4. H/O asthma. Echo reviewed - EF 50-55%, mod to severe LVH, mild AR. s/p lexiscan MPI stress test which was negative. pt remains in SR. convert Q6H cardizem to cardizem CD. d/c amio. can consider AFlutter ablation as OP. Initiate Eliquis. Pt may discharge home from cardiology standpoint. Follow up in our [place] office with Dr. Barajas on 09/21/2018 @ 1:45PM. The patient has been seen in conjunction with Dr. Duke who agrees with the assessment and plan of care. Subjective Date of service: 09/13/18 Principal diagnosis: aflutter Interval history: pt for stress test. no current cardiac complaints. remains in SR on telemetry. Objective Last Vital Signs Temp 98.0 F 09/13/18 04:08 Pulse 75 09/13/18 08:00 Resp 18 09/13/18 04:08 BP 133/92 09/13/18 09:14 Pulse Ox 94 09/13/18 04:08 - Physical Examination General: Appears Well, No Apparent Distress HEENT: Positive: Normocephaly, Mucus Membranes Moist Neck: Positive: neck supple, trachea midline. Negative: JVD/HJR Cardiac: Positive: Reg Rate and Rhythm, S1/S2 Lungs: Positive: clear to auscultation - Labs and Meds Coagulation 09/13/18 Range/Units 05:38 PT 16.2 H (12.2-14.9) Sec. INR 1.22 H (0.87-1.13) CBC 09/13/18 Range/Units 05:35 Hgb 11.8 (10.1-14.3) gm/dl Hct 36.6 (30.3-42.9) % Plt Count 180 (140-440) K/mm3 - Imaging and Cardiology EKG: report reviewed
[2018-09-13] MEDS ORDERED: PEPCID PO SCH (11:00)
--- NOTE | 2018-09-13 12:23 | Progress Note ---
Assessment and Plan Patient is a 53 yo woman with a history of hypertension, dm type 2, migraines and asthma who presented to [facility] ED with palpitations -Atrial flutter with rapid ventricular response, resolved: Cardiology is following -Acute chest pain: Cardiology following, Serial troponins -Type 2 diabetes mellitus: Continue metformin and coverage, Check A1c -Asthma: Continue bronchodilators when necessary -Morbid obesity, bmi 41.6: lifestyle modification -DVT prophylaxis: iv heparin drip Plan per Cardiology, d/c coumadin and cont iv heparin, if stress mpi wnl in am, will start doac, d/c cardizen gtt and start po, d/c amio in am if hr remains stable, check tte, stress mpi in am History Interval history: Patient was seen and examined. Follow-up on current diagnosis of AFib/aflutter. Overnight uneventful. Patient denies any chest pain, shortness breath, nausea/vomiting or severe headaches. Imaging, nursing note, chart, labs and old chart reviewed. Discussed with patient. Hospitalist Physical - Physical exam Narrative exam: Gen: WDWN, NAD, Awake, Alert, Orientated x 3, bmi 45 HEENT: NCAT, EOMI, PERRL, OP Clear Neck: supple, no adenopathy, no thyromegaly, no JVD CVS/Heart: RRR today normal S1S2, pulses present bilaterally Chest/Lungs: CTA B, Symmetrical chest expansion, good air entry bilaterally GI/Abdomen: soft, NTND, good bowel sounds, no guarding or rebound /Bladder: no suprapubic tenderness, no CVA or paraspinal tenderness Extermity/Skin: no c/c/e, no obvious rash MSK: FROM x 4 Neuro: CN 2-12 grossly intact, no new focal deficits Psych: calm Subjective Date of service: 09/13/18 Principal diagnosis: aflutter Objective - Constitutional Vitals: Vital Signs - 12hr 09/13/18 09/13/18 09/13/18 00:57 04:08 08:00 Temperature 98.0 F Pulse Rate 63 74 75 Respiratory 18 Rate Blood Pressure 134/76 O2 Sat by Pulse 94 Oximetry 09/13/18 09/13/18 09/13/18 09:00 09:06 09:07 Temperature Pulse Rate Respiratory Rate Blood Pressure 146/98 147/89 133/88 O2 Sat by Pulse Oximetry 09/13/18 09/13/18 09/13/18 09:09 09:10 09:12 Temperature Pulse Rate Respiratory Rate Blood Pressure 144/87 140/77 152/89 O2 Sat by Pulse Oximetry 09/13/18 09:14 Temperature Pulse Rate Respiratory Rate Blood Pressure 133/92 O2 Sat by Pulse Oximetry - Labs CBC & Chem 7: 09/13/18 05:35 09/11/18 05:46 Labs: Abnormal lab results 09/12/18 09/12/18 09/12/18 Range/Units 12:06 17:26 21:12 PT (12.2-14.9) Sec. INR (0.87-1.13) Heparin Anti-Xa Level (0.3-0.7) U.I./ml POC Glucose 215 H 225 H 261 H (70-105) 09/13/18 09/13/18 09/13/18 Range/Units 05:38 06:30 10:55 PT 16.2 H (12.2-14.9) Sec. INR 1.22 H (0.87-1.13) Heparin Anti-Xa Level 0.27 L (0.3-0.7) U.I./ml POC Glucose 228 H 307 H (70-105)
[2018-09-13] MEDS ORDERED: CARDIZEM CD PO SCH (13:00)
[2018-09-13] MEDS: PERCOCET 5/325 PO PRN (13:58)
--- NOTE | 2018-09-13 14:00 | Discharge Summary ---
Providers - Providers Date of Admission: 09/09/18 18:19 Date of discharge: 09/13/18 Attending physician: MARC FERNANDEZ 09/09/18 18:56 Consult to Cardiology [CONS] Routine Consulting Provider: SOLEDAD PAYNE Reason For Exam: Chest pain, Atrial Flutter with RVR 09/09/18 21:23 Consult to Physician [CONS] Routine Comment: Consulting Provider: RAAD DOE Physician Instructions: Reason For Exam: A. fib with RVR Hospitalization Reason for admission: Palpitation Condition: Fair Pertinent studies: CXR 2d echo Stress test Hospital course: Patient is a 53 yo woman with a history of hypertension, dm type 2, migraines and asthma who presented to [facility] ED with c/o palpitations, noted to be in atrial flutter, admitted for further evaluation and management. Discharge diagnosis and management: /Atrial flutter with rapid ventricular response: - s/p amioderone and cardizem drip - Echo reviewed - EF 50-55%, mod to severe LVH, mild AR. - s/p lexiscan MPI stress test which was negative. - Patient remained in SR. Adjusted cardizem dose to cardizem CD. Can consider AFlutter ablation as OP. - Initiated Eliquis before discharge. - Will Follow up @ cardiology [place] office with Dr. Payne on 09/21/2018 @ 1:45PM. /Acute chest pain: likely GERD, stress test was negative /Type 2 diabetes mellitus: Continued metformin and coverage with SSI /Asthma: placed on bronchodilators when necessary /Morbid obesity, BMI 41.6: advised for lifestyle modification Hospitalist Physical Gen: WDWN, NAD, Awake, Alert, Orientated x 3, bmi 45 HEENT: NCAT, EOMI, PERRL, OP Clear Neck: supple, no adenopathy, no thyromegaly, no JVD CVS/Heart: RRR today normal S1S2, pulses present bilaterally Chest/Lungs: CTA B, Symmetrical chest expansion, good air entry bilaterally GI/Abdomen: soft, NTND, good bowel sounds, no guarding or rebound /Bladder: no suprapubic tenderness, no CVA or paraspinal tenderness Extermity/Skin: no c/c/e, no obvious rash MSK: FROM x 4 Neuro: CN 2-12 grossly intact, no new focal deficits Psych: calm Disposition: DC-01 TO HOME OR SELFCARE Time spent for discharge: 34 minutes Core Measure Documentation - Palliative Care Palliative Care/ Comfort Measures: Not Applicable - Core Measures Any of the following diagnoses?: none Exam - Constitutional Vitals: Temp Pulse Resp BP Pulse Ox 98.0 F 75 18 133/92 94 09/13/18 04:08 09/13/18 08:00 09/13/18 04:08 09/13/18 09:14 09/13/18 04:08 Plan Activity: fall precautions Weight Bearing Status: Weight Bear as Tolerated Diet: low fat, low salt Follow up with: CARMEN HANSONBAKER MD MARIELA [Referring] - 3-5 Days Prescriptions: ALBUTEROL Inhaler (OR & NICU) [ProAir HFA Inhaler] 2 puff IH QID PRN #1 inhalation PRN Reason: Shortness Of Breath Apixaban [Eliquis] 5 mg PO Q12HR #60 tablet dilTIAZem CD [Cardizem CD] 180 mg PO QDAY #30 capsule Ipratropium/Albuterol Sulfate [DUONEB *Not for PRN Use*] 1 ampul INHALATION Q4HR PRN #30 ampul.neb PRN Reason: Shortness Of Breath metFORMIN [Glucophage] 500 mg PO BID #60 tablet
[2018-09-13] MEDS ORDERED: ELIQUIS PO SCH (22:00)
--- NOTE | 2018-09-14 00:13 | Treadmill Report ---
PROCEDURE: Nuclear perfusion study. REASON FOR STUDY: Chest pain and atrial flutter. IMAGING PROTOCOL: The patient received 10 mCi of Technetium 99m Tetrofosmin for resting image and 28 mCi of Technetium 99m Tetrofosmin for stress imaging. The imaging for the whole procedure was completed 30-90 minutes following the initial injection of Technetium 99m Tetrofosmin. The SPECT imaging in the 180 degree arc was performed in the right anterior oblique projection. Computerized reconstruction of the images was performed for analysis. IMAGING RESULTS: Normal cavity size from stress to rest. Normal distribution of radionuclide in the anterior, inferior, septal, and apical regions. Gated SPECT, EF 56% with no wall motion abnormality. The patient infused with Lexiscan with no EKG changes. The patient maintained sinus rhythm. SUMMARY: 1. Negative Lexiscan EKG. 2. Normal rest and stress myocardial perfusion scan. No significant ischemia. No wall motion abnormality. Gated SPECT, EF 56%. JOB# [id number] PINEDA/ADDY
== END 2018-09-13 19:06 | disposition home or self-care (01) | DRG 309 ==
LOC: ED 16:33 → 4A 18:19
PROVIDERS: ADMIT Internal Medicine; ATTEND Internal Medicine
DX: I48.92 Unspecified atrial flutter (principal); Z68.42 Body mass index [BMI] 45.0-49.9, adult; J45.909 Unspecified asthma, uncomplicated; E66.01 Morbid (severe) obesity due to excess calories; Z71.3 Dietary counseling and surveillance; Z88.8 Allergy status to other drugs, medicaments and biological substances; I10 Essential (primary) hypertension; J44.9 Chronic obstructive pulmonary disease, unspecified; E11.65 Type 2 diabetes mellitus with hyperglycemia; G43.909 Migraine, unspecified, not intractable, without status migrainosus; Z98.51 Tubal ligation status; Z87.891 Personal history of nicotine dependence; Z79.84 Long term (current) use of oral hypoglycemic drugs; K21.9 Gastro-esophageal reflux disease without esophagitis
CPT/HCPCS: 36415; 71045; 78452; 80048; 80053; 82962; 83036; 83735; 84484; 85014; 85018; 85025; 85027; 85049; 85379; 85520; 85610; 85730; 93005; 93010; 93017; 93306; 94760; 96361; 96374; 96375; 99291; G0378; A9502; J1160; J1644; J1815; J2785; J7030

== ENCOUNTER 2018-10-16 07:02 | Observation (INO) | payer MEDICARE ==
[2018-10-16] MEDS ORDERED: ASPIRIN PO ONE (07:28)
[2018-10-16 08:04] LABS: Basophils # (Auto) 0.1 K/mm3 (0.0-0.1); Eosinophils # (Auto) 0.1 K/mm3 (0.0-0.4); Eosinophils % (Auto) 1.6 % (0.0-4.3); Hematocrit 37.3 % (30.3-42.9); Hemoglobin 12.1 gm/dl (10.1-14.3); Lymphocytes # (Auto) 2.4 K/mm3 (1.2-5.4); Lymphocytes % (Auto) 36.4 % (13.4-35.0); Mean Corpuscular HGB Conc 33 % (30-34); Mean Corpuscular Volume 83 fl (79-97); Monocytes # (Auto) 0.4 K/mm3 (0.0-0.8); Monocytes % (Auto) 5.4 % (0.0-7.3); Platelet Count 209 K/mm3 (140-440); Red Blood Count 4.52 M/mm3 (3.65-5.03); Red Cell Distribution Width 13.1 % (13.2-15.2)
[2018-10-16 08:09] LABS: BUN/Creatinine Ratio 15; Blood Urea Nitrogen 9 mg/dL (7-17); Calcium 8.8 mg/dL (8.4-10.2); Hemolysis Index 11
--- NOTE | 2018-10-16 08:35 | XRay Report ---
PROCEDURE: XR CHEST ROUTINE 2V TECHNIQUE: PA and lateral chest radiographs HISTORY: Chest Pain COMPARISONS: None available FINDINGS: No mediastinal shift. Cardiac silhouette is not enlarged. No pneumothorax, effusion, or focal pulmo nary opacity. No acute skeletal finding. IMPRESSION: No focal pulmonary opacity. This document is electronically signed by Frandy Mccormick MD., October 16 2018 08:33:56 AM ET
[2018-10-16] MEDS ORDERED: HumuLIN R IV ONE (08:52)
--- NOTE | 2018-10-16 08:57 | Emergency Department Report ---
ED Chest Pain HPI - General Chief Complaint: Chest Pain Stated Complaint: CHEST PAIN Time Seen by Provider: 10/16/18 08:45 Source: patient Mode of arrival: Wheelchair Limitations: No Limitations - History of Present Illness Initial Comments: Patient is 53 years old female with history of hypertension, diabetes and a recent diagnosis of atrial flutter with RVR for which patient was admitted to the hospital last month. Patient presented to the ER via EMS stating that she's been having chest pain on and off for the last 2 days. Patient described her pain as aching and tightness sometimes with no radiation. She stated that pain associated with sweating and sometimes she feels her heart is racing. Patient also complaining of generalized numbness and feeling weak. Patient denied any fever or chills. No nausea or vomiting. MD Complaint: chest pain -: days(s) Onset: during rest, during exertion Pain Location: substernal Severity scale (0 -10): 7 Quality: tightness, aching Consistency: intermittent - Related Data Previous Rx's Medication Instructions Recorded Last Taken Type ALBUTEROL Inhaler (OR & NICU) 2 puff IH QID PRN #1 inhalation 09/13/18 Unknown Rx [ProAir HFA Inhaler] Apixaban [Eliquis] 5 mg PO Q12HR #60 tablet 09/13/18 Unknown Rx Ipratropium/Albuterol Sulfate 1 ampul INHALATION Q4HR PRN #30 09/13/18 Unknown Rx [DUONEB *Not for PRN Use*] ampul.neb dilTIAZem CD [Cardizem CD] 180 mg PO QDAY #30 capsule 09/13/18 Unknown Rx metFORMIN [Glucophage] 500 mg PO BID #60 tablet 09/13/18 Unknown Rx Allergies Allergy/AdvReac Type Severity Reaction Status Date / Time amlodipine Allergy Coughing Verified 09/09/18 17:29 hydrochlorothiazide Allergy Shortness Verified 09/09/18 17:29 of Breath Heart Score - HEART Score History: Moderately suspicious EKG: Non-specific Age: 45-65 Risk factors: > 3 risk factors or hx of atherosclerotic disease Troponin: < normal limit HEART Score: 5 - Critical Actions Critical Actions: 4-6 pts:12-16.6% risk of adverse cardiac event. Should be admitted ED Review of Systems ROS: Stated complaint: CHEST PAIN Other details as noted in HPI Comment: All other systems reviewed and negative Constitutional: denies: chills, fever Respiratory: denies: cough, orthopnea, shortness of breath, SOB with exertion, SOB at rest, stridor, wheezing Cardiovascular: chest pain, palpitations. denies: orthopnea Gastrointestinal: denies: abdominal pain, nausea, vomiting, diarrhea, constipation, hematemesis, melena, hematochezia Musculoskeletal: denies: back pain Neurological: weakness, numbness ED Past Medical Hx - Past Medical History Previous Medical History?: Yes Hx Hypertension: Yes Hx Congestive Heart Failure: No (leaky valve) Hx Diabetes: Yes Hx Headaches / Migraines: Yes Hx Asthma: Yes Hx COPD: Yes Hx HIV: No Additional medical history: "Enlarged heart". gastric ulcer - Surgical History Past Surgical History?: Yes Additional Surgical History: tubal ligation - Social History Smoking Status: Never Smoker Substance Use Type: None - Medications Home Medications: Home Medications Medication Instructions Recorded Confirmed Last Taken Type ALBUTEROL Inhaler (OR & NICU) 2 puff IH QID PRN #1 inhalation 09/13/18 Unknown Rx [ProAir HFA Inhaler] Apixaban [Eliquis] 5 mg PO Q12HR #60 tablet 09/13/18 Unknown Rx Ipratropium/Albuterol Sulfate 1 ampul INHALATION Q4HR PRN #30 09/13/18 Unknown Rx [DUONEB *Not for PRN Use*] ampul.neb dilTIAZem CD [Cardizem CD] 180 mg PO QDAY #30 capsule 09/13/18 Unknown Rx metFORMIN [Glucophage] 500 mg PO BID #60 tablet 09/13/18 Unknown Rx ED Physical Exam - General Limitations: No Limitations General appearance: alert, in no apparent distress, anxious - Head Head exam: Present: atraumatic, normocephalic, normal inspection - Eye Eye exam: Present: normal appearance, PERRL - ENT ENT exam: Present: normal exam, normal orophraynx, mucous membranes moist - Neck Neck exam: Present: normal inspection, full ROM. Absent: tenderness, meningismus, lymphadenopathy, thyromegaly - Respiratory Respiratory exam: Present: normal lung sounds bilaterally - Cardiovascular Cardiovascular Exam: Present: regular rate, normal rhythm, normal heart sounds - GI/Abdominal GI/Abdominal exam: Present: soft, normal bowel sounds. Absent: distended, tenderness, guarding, rebound, rigid, organomegaly, mass, bruit, pulsatile mass, hernia - Extremities Exam Extremities exam: Present: normal inspection, full ROM, normal capillary refill. Absent: tenderness, pedal edema, joint swelling, calf tenderness - Back Exam Back exam: Present: normal inspection, full ROM. Absent: tenderness, CVA tenderness (R), CVA tenderness (L), muscle spasm, paraspinal tenderness, vertebral tenderness - Neurological Exam Neurological exam: Present: alert, oriented X3, CN II-XII intact, normal gait, reflexes normal - Skin Skin exam: Present: warm, intact, normal color ED Course Vital Signs 10/16/18 10/16/18 09:03 09:08 Temperature 97 F L Pulse Rate 69 Respiratory 16 18 Rate Blood Pressure 145/87 [Left] O2 Sat by Pulse 96 Oximetry EMERSON score - Emerson Score Age > 65: (0) No Aspirin use within the Past 7 Days: (0) No 3 or more CAD Risk Factors: (1) Yes 2 or more Angina events in past 24 hrs: (1) Yes Known CAD with more than 50% Stenosis: (0) No Elevated Cardiac Markers: (0) No ST Deviation Greater than 0.5mm: (0) No EMERSON Score: 2 ED Medical Decision Making - Lab Data Result diagrams: 10/16/18 07:37 10/16/18 07:37 - EKG Data -: EKG Interpreted by Me EKG shows normal: sinus rhythm Rate: normal - EKG Data Interpretation: no acute changes - Medical Decision Making Patient is 53 years old female with history of hypertension, diabetes and a recent diagnosis of atrial flutter with RVR for which patient was admitted to the hospital last month. Patient presented to the ER via EMS stating that she's been having chest pain on and off for the last 2 days. Patient described her pain as aching and tightness sometimes with no radiation. She stated that pain associated with sweating and sometimes she feels her heart is racing. Patient also complaining of generalized numbness and feeling weak. Patient denied any fever or chills. No nausea or vomiting. Patient EKG is unremarkable. Chest x-ray is negative for acute finding. First set of troponin is negative. I discussed the patient was Dr. Amezquita, he agreed to admit the patient to medical service for further management. Critical care attestation.: If time is entered above; I have spent that time in minutes in the direct care of this critically ill patient, excluding procedure time. ED Disposition Clinical Impression: Chest pain Disposition: DC09 OP ADMIT IP TO THIS HOSP Is pt being admited?: Yes Condition: Stable Instructions: Chest Pain (ED) Referrals: LOUISA MARQUES MD [Primary Care Provider] - 3-5 Days
[2018-10-16 10:20] LABS: INR 1.07 (0.87-1.13)
[2018-10-16 11:22] LABS: Partial Thromboplastin Time 29.1 Sec. (24.2-36.6)
[2018-10-16] MEDS ORDERED: DUONEB *Not for PRN Use IH (11:36)
[2018-10-16] MEDS ORDERED: MORPHINE IV PRN (11:40)
[2018-10-16] MEDS ORDERED: NITROSTAT SL PRN (11:40)
[2018-10-16] MEDS ORDERED: SODIUM CHLORIDE FLUSH SYRINGE 10 ML IV PRN (11:40)
--- NOTE | 2018-10-16 11:54 | History and Physical Report ---
History of Present Illness Date of examination: 10/16/18 Date of admission: 10/16/18 Chief complaint: chest pain History of present illness: The patient is a 52 YO female with a past medical history of HTN, DM, atrial flutter, anticoagulated with Eliquis, sleep apnea (noncompliant with CPAP), asthma, morbid obesity presented with c/o chest pain, wheezing and palpitations intermittently for the past few days. She states that in the morning, her symptoms awoke her from sleep which caused anxiety which worsened her symptoms and then she called EMS. She describes her chest pain as an midsternal aching and pressure which is aggravated by deep inspiration and palpation of the chest wall. She stated that pain associated with sweating and sometimes she feels her heart is racing. Patient denied any fever or chills. No nausea or vomiting. She was admitted for further evaluation and management. Past History Past Medical History: diabetes, hypertension, hyperlipidemia, other (asthma, morbid obesity, CHRIS) Past Surgical History: Other (tubal ligation) Social history: alcohol abuse. denies: smoking, prescription drug abuse, IV drug use Family history: hypertension Medications and Allergies Allergies Allergy/AdvReac Type Severity Reaction Status Date / Time amlodipine Allergy Coughing Verified 09/09/18 17:29 hydrochlorothiazide Allergy Shortness Verified 09/09/18 17:29 of Breath Home Medications Medication Instructions Recorded Confirmed Last Taken Type ALBUTEROL Inhaler (OR & NICU) 2 puff IH QID PRN #1 inhalation 09/13/18 10/16/18 10/13/18 20:00 Rx [ProAir HFA Inhaler] Ipratropium/Albuterol Sulfate 1 ampul INHALATION Q4HR PRN #30 09/13/18 10/16/18 10/13/18 20:00 Rx [DUONEB *Not for PRN Use*] ampul.neb dilTIAZem CD [Cardizem CD] 180 mg PO QDAY #30 capsule 09/13/18 10/16/18 10/15/18 08:00 Rx metFORMIN [Glucophage] 500 mg PO BID #60 tablet 09/13/18 10/16/18 10/15/18 20:00 Rx Apixaban [Eliquis] 5 mg PO Q12HR #60 tablet 10/17/18 Unknown Rx AtorvaSTATin [Lipitor] 40 mg PO QHS #30 tab 10/17/18 Unknown Rx Pantoprazole [Protonix] 40 mg PO QDAY #30 tablet 10/17/18 Unknown Rx Active Meds: Active Medications Albuterol/Ipratropium (Duoneb *Not For Prn Use*) 1 ampul IH Q4HR PRN PRN Reason: Shortness Of Breath Apixaban (Eliquis) 5 mg PO Q12HR TORSTEN; Protocol Aspirin (Halfprin Ec) 81 mg PO ONCE ONE Stop: 10/16/18 11:48 Atorvastatin Calcium (Lipitor) 80 mg PO QHS TORSTEN Diltiazem HCl (Cardizem Cd) 180 mg PO QDAY TORSTEN Morphine Sulfate (Morphine) 2 mg IV Q5MIN PRN PRN Reason: Chest Pain unrelieved by NTG Nitroglycerin (Nitrostat) 0.4 mg SL Q5M PRN PRN Reason: Chest Pain Sodium Chloride (Sodium Chloride Flush Syringe 10 Ml) 10 ml IV PRN PRN PRN Reason: LINE FLUSH Exam - Constitutional Vitals: Temp Pulse Resp BP Pulse Ox 97 F L 69 18 145/87 96 10/16/18 09:03 10/16/18 09:03 10/16/18 09:08 10/16/18 09:03 10/16/18 09:03 General appearance: Present: no acute distress, well-nourished - EENT Eyes: Present: PERRL ENT: hearing intact, clear oral mucosa - Neck Neck: Present: supple, normal ROM - Respiratory Respiratory effort: normal Respiratory: bilateral: CTA - Cardiovascular Heart Sounds: Present: S1 & S2. Absent: rub, click - Extremities Extremities: pulses symmetrical, No edema Peripheral Pulses: within normal limits - Abdominal General gastrointestinal: Present: soft, non-tender, non-distended, normal bowel sounds - Integumentary Integumentary: Present: clear, warm, dry - Musculoskeletal Musculoskeletal: gait normal, strength equal bilaterally - Psychiatric Psychiatric: appropriate mood/affect, intact judgment & insight - Neurologic Neurologic: CNII-XII intact, moves all extremities Results - Labs CBC & Chem 7: 10/16/18 12:23 10/16/18 12:23 Labs: Abnormal lab results 10/16/18 10/16/18 10/16/18 Range/Units 07:37 07:37 09:08 MCH 27 L (28-32) pg RDW 13.1 L (13.2-15.2) % Lymph % (Auto) 36.4 H (13.4-35.0) % Creatinine 0.6 L (0.7-1.2) mg/dL Glucose 310 H (65-100) mg/dL POC Glucose 257 H (70-105) 10/16/18 Range/Units 10:28 MCH (28-32) pg RDW (13.2-15.2) % Lymph % (Auto) (13.4-35.0) % Creatinine (0.7-1.2) mg/dL Glucose (65-100) mg/dL POC Glucose 162 H (70-105) - Imaging and Cardiology Chest x-ray: report reviewed (No acute cardiopulmonary process seen. No change. ) Assessment and Plan Acute chest pain, likely atypical - had 2d echo showing preserved EF and negative stress test about a month ago - normal CE, will consult cardiology, will place PPI Atrial flutter, on cardizem for rate control and eliquis for AC Asthma not in exacerbation, nebs as needed Morbid obesity, need lifestyle change and motivation CHRIS, CPAP at bedtime, non complaint HLD , cont statin DM type 2, SSI as needed DVT Px, on eliquis
[2018-10-16 12:37] LABS: Basophils % (Auto) 0.6 % (0.0-1.8); Eosinophils # (Auto) 0.1 K/mm3 (0.0-0.4); Eosinophils % (Auto) 1.4 % (0.0-4.3); Hematocrit 36.9 % (30.3-42.9); Hemoglobin 12.1 gm/dl (10.1-14.3); Lymphocytes % (Auto) 33.1 % (13.4-35.0); Mean Corpuscular HGB Conc 33 % (30-34); Mean Corpuscular Volume 82 fl (79-97); Monocytes # (Auto) 0.4 K/mm3 (0.0-0.8); Monocytes % (Auto) 6.5 % (0.0-7.3); Platelet Count 207 K/mm3 (140-440); Red Blood Count 4.48 M/mm3 (3.65-5.03); Red Cell Distribution Width 13.3 % (13.2-15.2)
[2018-10-16] MEDS ORDERED: HALFPRIN EC PO ONE (13:00)
[2018-10-16 13:04] LABS: BUN/Creatinine Ratio 18; Blood Urea Nitrogen 9 mg/dL (7-17); Calcium 8.9 mg/dL (8.4-10.2); Hemolysis Index 57; LDL Cholesterol,Direct 94 mg/dL (50-130)
[2018-10-16 13:38] LABS: Chol/HDL Ratio 2.28 %; HDL Cholesterol 66 mg/dL (40-59)
[2018-10-16] MEDS: CARDIZEM CD PO SCH (15:51)
[2018-10-16] MEDS: ELIQUIS PO SCH ×2 (15:52→21:14)
[2018-10-16] MEDS: HumuLIN R SUB-Q SCH (21:14)
[2018-10-17] MEDS: HumuLIN R SUB-Q SCH ×2 (08:58→12:28)
[2018-10-17] MEDS ORDERED: TYLENOL PO PRN (09:08)
[2018-10-17] MEDS: CARDIZEM CD PO SCH (09:11)
[2018-10-17] MEDS: ELIQUIS PO SCH (09:12)
[2018-10-17 12:11] VITALS: BP 138/93
--- NOTE | 2018-10-17 12:47 | Discharge Summary ---
Providers - Providers Date of Admission: 10/16/18 11:39 Date of discharge: 10/17/18 Attending physician: MARC FERNANDEZ 10/16/18 Consult to Cardiac Rehabilitation [CONS] Routine Reason For Exam: Phase I 10/16/18 11:48 Consult to Physician [CONS] Routine Comment: Consulting Provider: SUMIT ARELLANO Physician Instructions: Reason For Exam: chest pain Primary care physician: LOUISA MARQUES Hospitalization Reason for admission: Chest pain Condition: Stable Pertinent studies: CXR : No focal pulmonary opacity. Hospital course: The pt is a 52 YO female with a past medical history of HTN, DM, atrial flutter, anticoagulated with Eliquis, sleep apnea (noncompliant with CPAP), asthma, morbid obesity, not compliant with OP follow up presented with c/o chest pain, wheezing and palpitations intermittently for the past few days. Echo done 09/12/2018 showed EF 50-55%, mod to severe LVH, mild AR. Lexiscan MPI stress test done 09/13/2018 was negative. Patient is Currently stable cardiac status per cardiology. Tele reviewed - patient in SR since admission. Patient was discharge home in stable condition. She will cont home cardiac regimen, including Eliquis. Recommend follow up in cardiology office with Dr. Keith Guthrie within 1-2 weeks of hospital discharge ([phone]). Discharge Diagnosis: Acute chest pain, likely atypical - from GERD - had 2d echo showing preserved EF and negative stress test about a month ago - normal CE, Consulted cardiology and recommended no further work up, placed PPI Atrial flutter, on cardizem for rate control and eliquis for AC (she was placed on coumadin outpt but she stated she cannot keep up with coumadin diet and outpt INR follow up) Asthma not in exacerbation, nebs as needed Morbid obesity, need lifestyle change and motivation CHRIS, CPAP at bedtime, non complaint HLD , cont statin DM type 2, Placed on SSI as needed DVT Px, on eliquis Disposition: DC-01 TO HOME OR SELFCARE Time spent for discharge: 34 minutes Core Measure Documentation - Palliative Care Palliative Care/ Comfort Measures: Not Applicable - Core Measures Any of the following diagnoses?: none Exam - Constitutional Vitals: Temp Pulse Resp BP Pulse Ox 98.4 F 81 18 138/93 95 10/17/18 12:11 10/17/18 12:09 10/17/18 12:09 10/17/18 12:09 10/17/18 12:09 General appearance: Present: no acute distress, obese - EENT Eyes: Present: PERRL ENT: hearing intact, clear oral mucosa - Neck Neck: Present: supple, normal ROM - Respiratory Respiratory effort: normal Respiratory: bilateral: CTA - Cardiovascular Heart Sounds: Present: S1 & S2. Absent: rub, click - Extremities Extremities: pulses symmetrical, No edema Peripheral Pulses: within normal limits - Abdominal General gastrointestinal: Present: soft, non-tender, non-distended, normal bowel sounds - Integumentary Integumentary: Present: clear, warm, dry - Musculoskeletal Musculoskeletal: gait normal, strength equal bilaterally - Psychiatric Psychiatric: appropriate mood/affect, intact judgment & insight - Neurologic Neurologic: CNII-XII intact, moves all extremities Plan Activity: advance as tolerated Weight Bearing Status: Weight Bear as Tolerated Diet: low fat, low salt Follow up with: LOUISA MARQUES MD [Primary Care Provider] - 3-5 Days Prescriptions: AtorvaSTATin [Lipitor] 40 mg PO QHS #30 tab Apixaban [Eliquis] 5 mg PO Q12HR #60 tablet Pantoprazole [Protonix] 40 mg PO QDAY #30 tablet
--- NOTE | 2018-10-17 13:00 | Consultation ---
History of Present Illness Consult date: 10/17/18 Requesting physician: MARC FERNANDEZ Consult reason: chest pain History of present illness: The pt is a 52 YO female with a past medical history of HTN, DM, atrial flutter, anticoagulated with Eliquis, sleep apnea (noncompliant with CPAP), asthma, morbid obesity. She has been seen by our practice on prior hospitalization but has not been compliant with OP follow up. She presented with c/o chest pain, wheezing and palpitations intermittently for the past few days. She states that yesterday morning, her symptoms awoke her from sleep which caused anxiety which worsened her symptoms and then she called EMS. She describes her chest pain as an midsternal aching and pressure which is aggravated by deep inspiration and palpation of the chest wall. She reports that she had a cold approx 3 weeks ago. She denies any SOB, n/v, diaphoresis, dizziness or syncope. Echo done 09/12/2018 showed EF 50-55%, mod to severe LVH, mild AR. Lexiscan MPI stress test done 09/13/2018 was negative. Past History Past Medical History: atrial fib, diabetes, hypertension, other (asthma, morbid obesity, CHRIS) Past Surgical History: Other (tubal ligation) Social history: alcohol abuse. denies: smoking, prescription drug abuse, IV drug use Family history: hypertension Medications and Allergies Allergies Allergy/AdvReac Type Severity Reaction Status Date / Time amlodipine Allergy Coughing Verified 09/09/18 17:29 hydrochlorothiazide Allergy Shortness Verified 09/09/18 17:29 of Breath Home Medications Medication Instructions Recorded Confirmed Last Taken Type ALBUTEROL Inhaler (OR & NICU) 2 puff IH QID PRN #1 inhalation 09/13/18 10/16/18 10/13/18 20:00 Rx [ProAir HFA Inhaler] Ipratropium/Albuterol Sulfate 1 ampul INHALATION Q4HR PRN #30 09/13/18 10/16/18 10/13/18 20:00 Rx [DUONEB *Not for PRN Use*] ampul.neb dilTIAZem CD [Cardizem CD] 180 mg PO QDAY #30 capsule 09/13/18 10/16/18 10/15/18 08:00 Rx metFORMIN [Glucophage] 500 mg PO BID #60 tablet 09/13/18 10/16/18 10/15/18 20:00 Rx Apixaban [Eliquis] 5 mg PO Q12HR #60 tablet 10/17/18 Unknown Rx AtorvaSTATin [Lipitor] 40 mg PO QHS #30 tab 10/17/18 Unknown Rx Pantoprazole [Protonix] 40 mg PO QDAY #30 tablet 10/17/18 Unknown Rx Active Meds: Active Medications Acetaminophen (Tylenol) 650 mg PO Q6H PRN PRN Reason: Pain, Mild (1-3) Last Admin: 10/17/18 10:23 Dose: 650 mg Documented by: Albuterol/Ipratropium (Duoneb *Not For Prn Use*) 1 ampul IH Q4H PRN PRN Reason: Shortness Of Breath Apixaban (Eliquis) 5 mg PO Q12HR [facility]; Protocol Last Admin: 10/17/18 09:12 Dose: 5 mg Documented by: Atorvastatin Calcium (Lipitor) 80 mg PO QHS [facility] Last Admin: 10/16/18 21:14 Dose: 80 mg Documented by: Diltiazem HCl (Cardizem Cd) 180 mg PO QDAY [facility] Last Admin: 10/17/18 09:11 Dose: 180 mg Documented by: Insulin Human Regular (Humulin R) 0 units SUB-Q ACHS [facility]; Protocol Last Admin: 10/17/18 12:28 Dose: 4 units Documented by: Morphine Sulfate (Morphine) 2 mg IV Q5MIN PRN PRN Reason: Chest Pain unrelieved by NTG Last Admin: 10/16/18 15:52 Dose: 2 mg Documented by: Nitroglycerin (Nitrostat) 0.4 mg SL Q5M PRN PRN Reason: Chest Pain Sodium Chloride (Sodium Chloride Flush Syringe 10 Ml) 10 ml IV PRN PRN PRN Reason: LINE FLUSH Review of Systems Constitutional: no weight loss, no weight gain, no fever, no chills, no sweats Ears, nose, mouth and throat: no ear pain, no nose pain, no sinus pressure, no sinus pain Cardiovascular: chest pain, palpitations, high blood pressure, no orthopnea, no edema, no syncope, no lightheadedness, no shortness of breath, no dyspnea on exertion Respiratory: wheezing, pain on inspiration, no cough, no shortness of breath, no dyspnea on exertion, no congestion Gastrointestinal: no abdominal pain, no nausea, no vomiting, no diarrhea, no constipation, no change in bowel habits Genitourinary Female: no pelvic pain, no flank pain, no dysuria, no urinary frequency, no urgency Musculoskeletal: no neck stiffness, no neck pain, no shooting arm pain, no arm numbness/tingling, no low back pain, no shooting leg pain Integumentary: no rash, no pruritis, no redness, no sores, no wounds Neurological: no head injury, no paralysis, no weakness, no parathesias, no numbness, no tingling, no seizures, no syncope Psychiatric: anxiety Endocrine: no cold intolerance, no heat intolerance Hematologic/Lymphatic: no easy bruising, no easy bleeding Allergic/Immunologic: wheezing, no urticaria Physical Examination Vital Signs Temp Pulse Resp BP Pulse Ox 97 F L 69 16 145/87 96 10/16/18 09:03 10/16/18 09:03 10/16/18 09:03 10/16/18 09:03 10/16/18 09:03 General appearance: no acute distress HEENT: Positive: PERRL, Normocephaly, Mucus Membranes Moist Neck: Positive: neck supple, trachea midline Cardiac: Positive: Reg Rate and Rhythm, S1/S2 Lungs: Positive: Decreased Breath Sounds Neuro: Positive: Grossly Intact Abdomen: Negative: Tender Skin: Negative: Rash Musculoskeletal: No Pain Extremities: Absent: edema Results 10/16/18 12:23 10/16/18 12:23 Lipids 10/16/18 Range/Units 12:23 Triglycerides 86 (2-149) mg/dL Cholesterol 151 (50-199) mg/dL HDL Cholesterol 66 H (40-59) mg/dL Cholesterol/HDL Ratio 2.28 % Comprehensive Metabolic Panel 10/16/18 Range/Units 12:23 Sodium 141 (137-145) mmol/L Potassium 4.5 (3.6-5.0) mmol/L Chloride 102.6 (98-107) mmol/L Carbon Dioxide 24 (22-30) mmol/L BUN 9 (7-17) mg/dL Creatinine 0.5 L (0.7-1.2) mg/dL Glucose 205 H (65-100) mg/dL Calcium 8.9 (8.4-10.2) mg/dL - Imaging and Cardiology Echo: report reviewed (09/12/2018 showed EF 50-55%, mod to severe LVH, mild AR. ) EKG: report reviewed, image reviewed EKG interpretations - Telemetry EKG Rhythm: Sinus Rhythm - EKG Sinus rhythms and dysrhythmias: sinus rhythm Assessment and Plan Currently stable cardiac status. AMI ruled out. Pt's chest pain appears pleuritic in nature. Echo done 09/12/2018 showed EF 50-55%, mod to severe LVH, mild AR. Lexiscan MPI stress test done 09/13/2018 was negative. Tele reviewed - pt in SR since admission. Pt may discharge home from cardiology standpoint. Cont home cardiac regimen, including Eliquis. Recommend follow up in our office with Dr. Keith Guthrie within 1- 2 weeks of hospital discharge ([phone]). The patient has been seen in conjunction with Dr. Keith Guthrie who agrees with the assessment and plan of care. - Patient Problems (1) Chest pain Current Visit: Yes Status: Acute (2) History of atrial flutter Current Visit: Yes Status: Chronic (3) Hypertension Current Visit: Yes Status: Chronic (4) Diabetes mellitus, type II Current Visit: Yes Status: Chronic Qualifiers: Diabetes mellitus complication status: without complication Qualified Code(s): E11.9 - Type 2 diabetes mellitus without complications (5) Asthma Current Visit: Yes Status: Chronic Qualifiers: Asthma severity: mild Asthma complication type: unspecified (6) Sleep apnea Current Visit: Yes Status: Chronic (7) Morbid obesity Current Visit: Yes Status: Chronic (8) Non-compliance Current Visit: Yes Status: Chronic
== END 2018-10-17 16:45 | disposition home or self-care (01) ==
LOC: ED 07:02 → INTOOBSV 11:39 → 4A 11:39
PROVIDERS: ADMIT Internal Medicine; ATTEND Internal Medicine
DX: R07.89 Other chest pain (principal); J45.909 Unspecified asthma, uncomplicated; I48.92 Unspecified atrial flutter; I10 Essential (primary) hypertension; E11.9 Type 2 diabetes mellitus without complications; E66.01 Morbid (severe) obesity due to excess calories; E78.5 Hyperlipidemia, unspecified; G47.33 Obstructive sleep apnea (adult) (pediatric); Z68.41 Body mass index [BMI] 40.0-44.9, adult; Z71.3 Dietary counseling and surveillance; Z98.51 Tubal ligation status; Z88.8 Allergy status to other drugs, medicaments and biological substances
CPT/HCPCS: 36415; 71046; 80048; 80061; 82962; 83036; 83880; 84484; 85025; 85610; 85730; 93005; 93010; 94760; 96372; 96374; 96375; 99284; A9270; G0378; J2270; 99285; J1815

== ENCOUNTER 2020-01-20 02:11 | Observation (INO) | payer MEDICARE ==
[2020-01-20] MEDS ORDERED: ALBUTEROL 2.5 MG/3 ML NEBU IH ONE (03:14)
[2020-01-20] MEDS ORDERED: IPRATROPIUM 0.02% NEBU 2.5 ML IH ONE (03:14)
[2020-01-20] MEDS ORDERED: methylPREDNISolone Sod Succinate 125 MG/2 ML INJ IV ONE (03:14)
--- NOTE | 2020-01-20 03:16 | Emergency Department Report ---
<NICOLÁS HURLEY M - Last Filed: 01/20/20 14:50> ED Extremity Problem HPI - General Chief complaint: Extremity Injury, Lower Stated complaint: CHEST PAIN LEG SWELLING Time Seen by Provider: 01/20/20 02:36 - Related Data Previous Rx's Medication Instructions Recorded Last Taken Type Albuterol INH(or & Nicu Only) 2 puff IH QID PRN #1 inhalation 09/13/18 10/13/18 20:00 Rx [ProAir HFA Inhaler] Ipratropium/Albuterol Sulfate 1 ampul INHALATION Q4HR PRN #30 09/13/18 2 Days Ago Rx [DUONEB *Not for PRN Use*] ampul.neb ~01/18/20 dilTIAZem CD [Cardizem CD] 180 mg PO QDAY #30 capsule 09/13/18 2 Days Ago Rx ~01/18/20 AtorvaSTATin [Lipitor] 40 mg PO QHS #30 tab 10/17/18 2 Weeks Ago Rx ~01/06/20 Pantoprazole [Protonix TAB] 40 mg PO QDAY #30 tablet 10/17/18 2 Days Ago Rx ~01/18/20 Apixaban [Eliquis] 5 mg PO Q12HR #60 tablet 01/22/20 Unknown Rx metFORMIN [Glucophage] 500 mg PO BIDDIAB tablet 01/22/20 Unknown Rx traMADoL [Ultram] 50 mg PO Q6HR PRN #14 tablet 01/22/20 Unknown Rx Allergies Allergy/AdvReac Type Severity Reaction Status Date / Time amlodipine Allergy Coughing Verified 09/09/18 17:29 hydrochlorothiazide Allergy Shortness Verified 09/09/18 17:29 of Breath ED Past Medical Hx - Medications Home Medications: Home Medications Medication Instructions Recorded Confirmed Last Taken Type Albuterol INH(or & Nicu Only) 2 puff IH QID PRN #1 inhalation 09/13/18 01/21/20 10/13/18 20:00 Rx [ProAir HFA Inhaler] Ipratropium/Albuterol Sulfate 1 ampul INHALATION Q4HR PRN #30 09/13/18 01/20/20 2 Days Ago Rx [DUONEB *Not for PRN Use*] ampul.neb ~01/18/20 dilTIAZem CD [Cardizem CD] 180 mg PO QDAY #30 capsule 09/13/18 01/20/20 2 Days Ago Rx ~01/18/20 AtorvaSTATin [Lipitor] 40 mg PO QHS #30 tab 10/17/18 01/20/20 2 Weeks Ago Rx ~01/06/20 Pantoprazole [Protonix TAB] 40 mg PO QDAY #30 tablet 10/17/18 01/20/20 2 Days Ago Rx ~01/18/20 Apixaban [Eliquis] 5 mg PO Q12HR #60 tablet 01/22/20 Unknown Rx metFORMIN [Glucophage] 500 mg PO BIDDIAB tablet 01/22/20 Unknown Rx traMADoL [Ultram] 50 mg PO Q6HR PRN #14 tablet 01/22/20 Unknown Rx ED Medical Decision Making - Lab Data Result diagrams: 01/20/20 03:52 01/20/20 03:52 ED Disposition Clinical Impression: Asthma exacerbation, Right leg swelling, Anticoagulant long-term use, Noncompliance with medication regimen, Person under investigation for COVID-19 DVT (deep venous thrombosis) Qualifiers: DVT location: lower extremity Affected thrombotic vein of extremity: unspecified vein of extremity Chronicity: acute Laterality: right Qualified Code(s): I82.401 - Acute embolism and thrombosis of unspecified deep veins of right lower extremity Disposition: DC-09 OP ADMIT IP TO THIS HOSP Is pt being admited?: Yes Does the pt Need Aspirin: No Condition: Stable Time of Disposition: 14:51 <KATRIN BRUNO - Last Filed: 01/22/20 18:57> ED Extremity Problem HPI - General Source: patient Mode of arrival: Stretcher Limitations: Physical Limitation - History of Present Illness Initial comments: 54-year-old female with a past medical history of obesity, A. fib on Eliquis 5 mg twice daily, obesity, sleep apnea with CPAP use at home, asthma, type 2 diabetes, and hyperlipidemia presents to the hospital with complaints of right leg pain and swelling x3 days. Patient missed 2 days of her Eliquis dosing. She also complains of having a dry cough with fever of 101 yesterday. She complains of shortness of breath and wheezing and suffers from chronic asthma/bronchitis. She denies known COVID exposure. She has not been tested for COVID. Patient states she has been isolating at home with exception of going to the store for groceries. Patient denies previous history of PE/DVT or recent travel ED Review of Systems ROS: Stated complaint: CHEST PAIN LEG SWELLING Other details as noted in HPI Comment: All other systems reviewed and negative ED Past Medical Hx - Past Medical History Hx Hypertension: Yes Hx Congestive Heart Failure: No (leaky valve) Hx Diabetes: Yes Hx Headaches / Migraines: Yes Hx Asthma: Yes Hx COPD: Yes Hx HIV: No Additional medical history: "Enlarged heart". gastric ulcer - Surgical History Past Surgical History?: Yes Additional Surgical History: tubal ligation - Social History Smoking Status: Never Smoker Substance Use Type: Alcohol ED Physical Exam - General Limitations: Physical Limitation - Other Other exam information: General: No acute distress Head: Atraumatic Eyes: normal appearance ENT: Moist mucous membranes Neck: Normal appearance, no midline tenderness Chest: Mild bilateral wheezing without tachypnea or accessory muscle use CV: regular rate and rhythm Abdomen: Soft, normal bowel sounds, nontender, nondistended, no rebound or guarding Back: Normal inspection Extremity: Right leg swelling compared to the left with tenderness to calf, mild warmth Neuro: Alert O x 3, no facial asymmetry, speech clear, no gross motor sensory deficit Psych: Appropriate behavior Skin: No rash ED Course Vital Signs 01/20/20 01/20/20 01/20/20 03:11 03:51 05:00 Temperature 98.5 F Pulse Rate 84 Pulse Rate [ 90 Bilateral] Respiratory 18 18 Rate Respiratory 20 Rate [Bilateral ] Blood Pressure 125/71 Blood Pressure [Left] O2 Sat by Pulse 96 96 Oximetry 01/20/20 01/20/20 01/20/20 06:35 07:52 08:00 Temperature Pulse Rate 88 Pulse Rate [ Bilateral] Respiratory 16 Rate Respiratory Rate [Bilateral ] Blood Pressure 119/74 Blood Pressure 136/70 [Left] O2 Sat by Pulse 96 90 91 Oximetry 01/20/20 01/20/20 01/20/20 09:00 10:00 11:00 Temperature Pulse Rate 96 H 97 H 97 H Pulse Rate [ Bilateral] Respiratory 30 H 33 H 19 Rate Respiratory Rate [Bilateral ] Blood Pressure 135/79 127/77 133/73 Blood Pressure [Left] O2 Sat by Pulse 96 94 94 Oximetry 01/20/20 01/20/20 01/20/20 12:00 13:00 14:00 Temperature Pulse Rate 98 H 98 H Pulse Rate [ Bilateral] Respiratory 23 16 Rate Respiratory Rate [Bilateral ] Blood Pressure 133/73 133/73 Blood Pressure 141/75 [Left] O2 Sat by Pulse 95 98 100 Oximetry 01/20/20 01/20/20 01/20/20 17:50 18:02 18:05 Temperature Pulse Rate 107 H Pulse Rate [ Bilateral] Respiratory 18 Rate Respiratory Rate [Bilateral ] Blood Pressure 133/73 133/73 Blood Pressure 147/102 [Left] O2 Sat by Pulse 97 97 100 Oximetry 01/20/20 01/20/20 01/20/20 19:00 20:00 21:00 Temperature Pulse Rate Pulse Rate [ Bilateral] Respiratory Rate Respiratory Rate [Bilateral ] Blood Pressure 147/102 123/72 140/92 Blood Pressure [Left] O2 Sat by Pulse 95 92 93 Oximetry 01/20/20 01/20/20 01/20/20 22:00 23:00 23:14 Temperature 98.0 F Pulse Rate 90 Pulse Rate [ Bilateral] Respiratory 22 Rate Respiratory Rate [Bilateral ] Blood Pressure 143/94 149/86 149/86 Blood Pressure [Left] O2 Sat by Pulse 96 97 89 Oximetry 01/20/20 01/20/20 01/20/20 23:20 23:30 23:40 Temperature Pulse Rate Pulse Rate [ Bilateral] Respiratory Rate Respiratory Rate [Bilateral ] Blood Pressure 149/86 149/86 149/86 Blood Pressure [Left] O2 Sat by Pulse 98 98 96 Oximetry 01/20/20 01/21/20 01/21/20 23:50 00:00 00:10 Temperature Pulse Rate Pulse Rate [ Bilateral] Respiratory Rate Respiratory Rate [Bilateral ] Blood Pressure 149/86 156/99 156/99 Blood Pressure [Left] O2 Sat by Pulse 96 94 96 Oximetry - Reevaluation(s) Reevaluation #1: 01/20/20 05:36 pt with elevated ddimer but neg ct angio for Pulmonary embolism pt will be s/o to oncoming provided to f/u doppler of right leg (not available at this time so to be done in am when available) pt provided nebs and solumedrol for wheezing no signs of fever or pneumonia on cxr/cta chest 01/20/20 05:46 wheezing improved after treatments ED Medical Decision Making - Lab Data Result diagrams: 01/20/20 03:52 01/20/20 14:48 - Radiology Data Radiology results: report reviewed CTA CHEST WITH IV CONTRAST INDICATION: Chest pain. TECHNIQUE: Axial CT images were obtained through the chest after injection of IV contrast. 3 plane MIP reconstructions were produced. All CT scans at this location are performed using CT dose reduction for ALARA by means of automated exposure control. COMPARISON: None available. FINDINGS: Pulmonary Arteries: No pulmonary emboli. Thoracic Aorta: No acute abnormality. Heart: Normal. Lungs: No acute air space or interstitial disease. Pleura: No pleural effusion. No pneumothorax. Lymph Nodes: No significant adenopathy. Additional Findings: There is a densely calcified nodule in the lower pole of the left thyroid. Upper Abdomen: No acute findings. Skeletal Structures: No significant osseous abnormality. IMPRESSION: 1. No CT evidence for pulmonary embolism. 2. No acute findings. 3. 1 cm densely calcified nodule left thyroid lobe. CHEST 1 VIEW INDICATION: sob, wheezing. COMPARISON: 10/16/2018 FINDINGS: Support devices: None. Heart: Normal. Lungs/Pleura: No acute pulmonary or pleural findings. IMPRESSION: 1. No acute findings. - Medical Decision Making pt s/o to Dr Hurley to f/u doppler exam and to discuss with hospitalist for admission if positive for dvt on eliquis but missed 2 days recently, current ekg nsr, no Pulmonary embolism on ct + wheezing improved with nebs and steroids. no hypoxia Critical Care Time: No Critical care attestation.: If time is entered above; I have spent that time in minutes in the direct care of this critically ill patient, excluding procedure time.
--- NOTE | 2020-01-20 04:01 | XRay Report ---
CHEST 1 VIEW INDICATION: sob, wheezing. COMPARISON: 10/16/2018 FINDINGS: Support devices: None. Heart: Normal. Lungs/Pleura: No acute pulmonary or pleural findings. IMPRESSION: 1. No acute findings. Signer Name: Al Moreno MD Signed: 01/20/2020 3:56 AM Workstation Name: [id number]
[2020-01-20 04:31] LABS: Basophils # (Auto) 0.1 K/mm3 (0.0-0.1); Eosinophils # (Auto) 0.1 K/mm3 (0.0-0.4); Eosinophils % (Auto) 1.1 % (0.0-4.3); Hematocrit 38.8 % (30.3-42.9); Hemoglobin 12.4 gm/dl (10.1-14.3); Lymphocytes # (Auto) 2.7 K/mm3 (1.2-5.4); Lymphocytes % (Auto) 31.1 % (13.4-35.0); Mean Corpuscular HGB Conc 32 % (30-34); Mean Corpuscular Volume 84 fl (79-97); Monocytes # (Auto) 0.8 K/mm3 (0.0-0.8); Platelet Count 204 K/mm3 (140-440)
[2020-01-20 04:43] LABS: Alanine Aminotransferase 25 units/L (7-56); Albumin 4.4 g/dL (3.9-5); BUN/Creatinine Ratio 19; Blood Urea Nitrogen 15 mg/dL (7-17); Calcium 9.4 mg/dL (8.4-10.2); Hemolysis Index 26
[2020-01-20 04:44] LABS: INR 1.03 (0.87-1.13)
[2020-01-20 04:45] LABS: Partial Thromboplastin Time 26.8 Sec. (24.2-36.6)
[2020-01-20] MEDS ORDERED: ONDANSETRON 4 MG/2 ML INJ IV ONE (05:17)
[2020-01-20] MEDS ORDERED: MORPHINE 4 MG/1 ML INJ IV ONE (05:17)
--- NOTE | 2020-01-20 05:32 | Cat Scan Report ---
CTA CHEST WITH IV CONTRAST INDICATION: Chest pain. TECHNIQUE: Axial CT images were obtained through the chest after injection of IV contrast. 3 plane MIP reconstru ctions were produced. All CT scans at this location are performed using CT dose reduction for ALARA b y means of automated exposure control. COMPARISON: None available. FINDINGS: Pulmonary Arteries: No pulmonary emboli. Thoracic Aorta: No acute abnormality. Heart: Normal. Lungs: No acute air space or interstitial disease. Pleura: No pleural effusion. No pneumothorax. Lymph Nodes: No significant adenopathy. Additional Findings: There is a densely calcified nodule in the lower pole of the left thyroid. Upper Abdomen: No acute findings. Skeletal Structures: No significant osseous abnormality. IMPRESSION: 1. No CT evidence for pulmonary embolism. 2. No acute findings. 3. 1 cm densely calcified nodule left thyroid lobe. Signer Name: Al Moreno MD Signed: 01/20/2020 5:27 AM Workstation Name: [id number]
[2020-01-20] MEDS ORDERED: HYDROcodone/ACETAMINOPHEN 5-325 MG TAB PO ONE (10:48)
[2020-01-20] MEDS ORDERED: HYDROcodone/ACETAMINOPHEN 5-325 MG TAB ONE (10:49)
[2020-01-20] MEDS ORDERED: ENOXAPARIN 100 MG/1 ML INJ SUB-Q ONE ×2 (14:53→17:54)
--- NOTE | 2020-01-20 14:53 | Emergency Department Report ---
Blank Doc - Documentation Documentation: 54-year-old female seen by Dr. Harvey. Finally a Doppler was performed. Accordi ng to the tech there is a clot in the superficial femoral vein at least. Exam is certainly consistent with DVT. Additionally the patient has had a fever and has been coughing. I have made a her a person under investigation for COVID. She is admitted to Dr. Kelley for further care and evaluation. She will get a shot of Lovenox now.
--- NOTE | 2020-01-20 14:59 | Vascular Lab Report ---
DUPLEX DOPPLER LOWER EXTREMITY VEINS, RIGHT INDICATION: RIGHT LEG SWELLING. TECHNIQUE: Duplex doppler imaging was performed through the veins of the right lower extremity using venous comp ression and other maneuvers. COMPARISON: None available. FINDINGS: Common femoral vein: Negative. Superficial femoral vein: There is near occlusive DVT extending from the mid superficial femoral vein to distal superficial femoral vein. It is unclear based on appearance whether this is acute or chron ic, or possibly combination of both. Popliteal vein: Negative. Calf veins: Negative. Additional findings: None. IMPRESSION: 1. Near occlusive DVT within the mid to distal right superficial femoral vein. It is unclear, without prior studies, whether this is acute versus chronic DVT or possibly combination of both.. Signer Name: Eloise Duran MD Signed: 01/20/2020 2:54 PM Workstation Name: [id number]
[2020-01-20 15:21] LABS: C-Reactive Protein 0.9 mg/dL (0.00-1.30)
--- NOTE | 2020-01-20 21:48 | History and Physical Report ---
History of Present Illness Date of examination: 01/20/20 Date of admission: 01/20/20 14:53 Chief complaint: Right lower extremity swelling for 3 days History of present illness: 52-year-old -[place] female with history of hypertension, type 2 diabetes, DVT, atrial fibrillation and asthma/hyperlipidemia comes in for right lower extremity swelling of 3 days duration. Patient missed her 2 days of her Eliquis dosing. Patient also has a dry cough and a fever of 101. Complaint patient complains of shortness of breath and wheezing and suffers from chronic asthma bronchitis. Denies any cold exposure. Is not been tested for: Recently. Patient has been isolating herself at home and not going out much. Wearing mask all the time. Right lower extremity pain is about 6 on a scale of 1-10 swelling is present involving the cough region. Some shortness of breath present. Which is at baseline. No chest pain. Patient being admitted for treatment of DVT and low-grade fever to rule out covid - Past Medical History Hypertension: Yes Diabetes: Yes Headaches / Migraines Asthma: Yes COPD: Yes "Enlarged heart". gastric ulcer sleep apnea - Surgical History Past Surgical History?: Yes Additional Surgical History: tubal ligation - Social History Smoking Status: Never Smoker Substance Use Type: Alcohol Family history Htn - Medications Home Medications: Home Medications Medication Instructions Recorded Confirmed Last Taken Type Albuterol INH(or & Nicu Only) 2 puff IH QID PRN #1 inhalation 09/13/18 10/16/18 10/13/18 20:00 Rx [ProAir HFA Inhaler] Ipratropium/Albuterol Sulfate 1 ampul INHALATION Q4HR PRN #30 09/13/18 10/16/18 10/13/18 20:00 Rx [DUONEB *Not for PRN Use*] ampul.neb dilTIAZem CD [Cardizem CD] 180 mg PO QDAY #30 capsule 09/13/18 10/16/18 10/15/18 08:00 Rx metFORMIN [Glucophage] 500 mg PO BID #60 tablet 09/13/18 10/16/18 10/15/18 20:00 Rx Apixaban [Eliquis] 5 mg PO Q12HR #60 tablet 10/17/18 Unknown Rx AtorvaSTATin [Lipitor] 40 mg PO QHS #30 tab 10/17/18 Unknown Rx Pantoprazole [Protonix] 40 mg PO QDAY #30 tablet 10/17/18 Unknown Rx Review of Systems ROS Constitutional no weight loss or weight gain no fever or chills HEENT no sore throat no post nasal drip no diplopia Neck no neck stiffness no lymph gland enlargement Chest and lungs no shortness of breath cough or wheezing CVS no chest pain no diaphoresis no palpitations GI no nausea no vomiting no diarrhea Genitourinary system no dysuria no flank pain Musculoskeletal system right lower extremity swelling and pain. ARGON TESTER no syncope no seizures Skin no rash no itching Psychiatric no depression no homicidal or suicidal tendencies Hematologic no lymphedema or bruising Endocrine no polydipsia no polyuria no cold intolerance no heat intolerance Medications and Allergies Allergies Allergy/AdvReac Type Severity Reaction Status Date / Time amlodipine Allergy Coughing Verified 09/09/18 17:29 hydrochlorothiazide Allergy Shortness Verified 09/09/18 17:29 of Breath Home Medications Medication Instructions Recorded Confirmed Last Taken Type Albuterol INH(or & Nicu Only) 2 puff IH QID PRN #1 inhalation 09/13/18 01/21/20 10/13/18 20:00 Rx [ProAir HFA Inhaler] Ipratropium/Albuterol Sulfate 1 ampul INHALATION Q4HR PRN #30 09/13/18 01/20/20 2 Days Ago Rx [DUONEB *Not for PRN Use*] ampul.neb ~01/18/20 dilTIAZem CD [Cardizem CD] 180 mg PO QDAY #30 capsule 09/13/18 01/20/20 2 Days Ago Rx ~01/18/20 Apixaban [Eliquis] 5 mg PO Q12HR #60 tablet 10/17/18 01/20/20 2 Weeks Ago Rx ~01/06/20 AtorvaSTATin [Lipitor] 40 mg PO QHS #30 tab 10/17/18 01/20/20 2 Weeks Ago Rx ~01/06/20 Pantoprazole [Protonix] 40 mg PO QDAY #30 tablet 10/17/18 01/20/20 2 Days Ago Rx ~01/18/20 Exam - Constitutional Vitals: Temp Pulse Resp BP Pulse Ox 98.5 F 107 H 18 123/72 92 01/20/20 03:11 01/20/20 18:05 01/20/20 18:05 01/20/20 20:00 01/20/20 20:00 General appearance: Present: no acute distress, well-nourished - EENT Eyes: Present: PERRL ENT: hearing intact, clear oral mucosa - Neck Neck: Present: supple, normal ROM - Respiratory Respiratory effort: normal Respiratory: bilateral: CTA - Cardiovascular Heart rate: 78 Rhythm: regular Heart Sounds: Present: S1 & S2. Absent: rub, click - Extremities Extremities: no ischemia, pulses symmetrical, No edema Extremity abnormal: other (Right lower extremity swelling from the mid thigh to the ankle) Peripheral Pulses: within normal limits - Abdominal General gastrointestinal: Present: soft, non-tender, non-distended, normal bowel sounds Female genitourinary: Present: normal - Integumentary Integumentary: Present: clear, warm, dry - Musculoskeletal Musculoskeletal: gait normal, strength equal bilaterally - Psychiatric Psychiatric: appropriate mood/affect, intact judgment & insight - Neurologic Neurologic: CNII-XII intact, moves all extremities - Allied Health Allied health notes reviewed: nursing, case management HEART Score - HEART Score History: Moderately suspicious Age: 45-65 Risk factors: > 3 risk factors or hx of atherosclerotic disease Troponin: < normal limit - Critical Actions Critical Actions: 4-6 pts:12-16.6% risk of adverse cardiac event. Should be admitted Results - Labs CBC & Chem 7: 01/20/20 03:52 01/20/20 14:48 Labs: Laboratory Last Values WBC 8.8 K/mm3 (4.5-11.0) 01/20/20 03:52 RBC 4.60 M/mm3 (3.65-5.03) 01/20/20 03:52 Hgb 12.4 gm/dl (10.1-14.3) 01/20/20 03:52 Hct 38.8 % (30.3-42.9) 01/20/20 03:52 MCV 84 fl (79-97) 01/20/20 03:52 MCH 27 pg (28-32) L 01/20/20 03:52 MCHC 32 % (30-34) 01/20/20 03:52 RDW 14.0 % (13.2-15.2) 01/20/20 03:52 Plt Count 204 K/mm3 (140-440) 01/20/20 03:52 Lymph % (Auto) 31.1 % (13.4-35.0) 01/20/20 03:52 [place] % (Auto) 9.0 % (0.0-7.3) H 01/20/20 03:52 Eos % (Auto) 1.1 % (0.0-4.3) 01/20/20 03:52 Baso % (Auto) 1.0 % (0.0-1.8) 01/20/20 03:52 Lymph # 2.7 K/mm3 (1.2-5.4) 01/20/20 03:52 [place] # 0.8 K/mm3 (0.0-0.8) 01/20/20 03:52 Eos # 0.1 K/mm3 (0.0-0.4) 01/20/20 03:52 Baso # 0.1 K/mm3 (0.0-0.1) 01/20/20 03:52 Seg Neutrophils % 57.8 % (40.0-70.0) 01/20/20 03:52 Seg Neutrophils # 5.1 K/mm3 (1.8-7.7) 01/20/20 03:52 PT 13.6 Sec. (12.2-14.9) 01/20/20 03:52 INR 1.03 (0.87-1.13) 01/20/20 03:52 APTT 26.8 Sec. (24.2-36.6) 01/20/20 03:52 D-Dimer 944.54 ng/mlDDU (0-234) H 01/20/20 14:48 Sodium 138 mmol/L (137-145) 01/20/20 03:52 Potassium 4.6 mmol/L (3.6-5.0) 01/20/20 03:52 Chloride 97.5 mmol/L (98-107) L 01/20/20 03:52 Carbon Dioxide 27 mmol/L (22-30) 01/20/20 03:52 Anion Gap 18 mmol/L 01/20/20 03:52 BUN 15 mg/dL (7-17) 01/20/20 03:52 Creatinine 0.8 mg/dL (0.7-1.2) 01/20/20 03:52 Estimated GFR > 60 ml/min 01/20/20 03:52 BUN/Creatinine Ratio 19 % 01/20/20 03:52 Glucose 250 mg/dL (65-100) H 01/20/20 14:48 Calcium 9.4 mg/dL (8.4-10.2) 01/20/20 03:52 Ferritin 110.9 ng/mL (13.0-400.0) 01/20/20 14:48 Total Bilirubin 0.50 mg/dL (0.1-1.2) 01/20/20 03:52 AST 27 units/L (5-40) 01/20/20 03:52 ALT 25 units/L (7-56) 01/20/20 03:52 Alkaline Phosphatase 114 units/L (35-129) 01/20/20 03:52 Lactate Dehydrogenase 153 units/L (91-180) 01/20/20 14:48 C-Reactive Protein 0.90 mg/dL (0.00-1.30) 01/20/20 14:48 Total Protein 7.6 g/dL (6.3-8.2) 01/20/20 03:52 Albumin 4.4 g/dL (3.9-5) 01/20/20 03:52 Albumin/Globulin Ratio 1.4 % 01/20/20 03:52 BMP 01/20/20 14:48 Glucose 250 H - Imaging and Cardiology Imaging and Cardiology: Venous duplex scan IMPRESSION: 1. Near occlusive DVT within the mid to distal right superficial femoral vein. It is unclear, without prior studies, whether this is acute versus chronic DVT or possibly combination of both.. CTA chest IMPRESSION: 1. No CT evidence for pulmonary embolism. 2. No acute findings. 3. 1 cm densely calcified nodule left thyroid lobe. Assessment and Plan Advance Directives: Yes (Full code) VTE prophylaxis?: Chemical Plan of care discussed with patient/family: Yes - Patient Problems (1) DVT (deep venous thrombosis) Current Visit: Yes Status: Acute Qualifiers: DVT location: lower extremity Affected thrombotic vein of extremity: unspecified vein of extremity Chronicity: acute Laterality: right Qualified Code(s): I82.401 - Acute embolism and thrombosis of unspecified deep veins of right lower extremity Plan to address problem: Patient initiated on Lovenox 130 mg subcu every 12 Eliquis stopped for the time being If COVID ruled out patient may be discharged on Eliquis (2) Person under investigation for COVID-19 Current Visit: Yes Status: Acute Plan to address problem: Coronavirus PCR ordered (3) COPD (chronic obstructive pulmonary disease) Current Visit: Yes Status: Chronic Qualifiers: Chronic bronchitis type: unspecified Plan to address problem: Continue duo nebs (4) Hypertension Current Visit: Yes Status: Chronic Qualifiers: Hypertension type: essential hypertension Qualified Code(s): I10 - Essential (primary) hypertension Plan to address problem: Continue antihypertensives (5) Noncompliance with medication regimen Current Visit: Yes Status: Chronic Plan to address problem: Patient counseled about noncompliance (6) Diabetes mellitus, type II Current Visit: No Status: Chronic Qualifiers: Diabetes mellitus complication status: without complication Qualified Code(s): E11.9 - Type 2 diabetes mellitus without complications Plan to address problem: Coverage for now and check hemoglobin A1c. Adjust medications as necessary (7) HLD (hyperlipidemia) Current Visit: Yes Status: Chronic Qualifiers: Hyperlipidemia type: mixed hyperlipidemia Qualified Code(s): E78.2 - Mixed hyperlipidemia Plan to address problem: Continue statins (8) GERD (gastroesophageal reflux disease) Current Visit: Yes Status: Chronic Qualifiers: Esophagitis presence: without esophagitis Qualified Code(s): K21.9 - Gastro-esophageal reflux disease without esophagitis Plan to address problem: Patient on PPIs (9) CHRIS (obstructive sleep apnea) Current Visit: Yes Status: Chronic Plan to address problem: CPAP as necessary (10) DVT prophylaxis Current Visit: No Status: Acute Plan to address problem: Patient already on Lovenox and GI prophylaxis
[2020-01-20] MEDS ORDERED: ALBUTEROL 8.5 GM INHALATION IH PRN (21:58)
[2020-01-20] MEDS ORDERED: APIXABAN 5 MG TAB PO SCH (22:00)
[2020-01-20] MEDS ORDERED: ALBUTEROL 2.5 MG/3 ML NEBU IH PRN (22:01)
[2020-01-20] MEDS ORDERED: metFORMIN 500 MG TAB ONE (22:34)
[2020-01-21] MEDS ORDERED: oxyCODONE /ACETAMINOPHEN 5-325MG TAB PO ONE (03:27)
[2020-01-21] MEDS ORDERED: IPRATROPIUM/ALBUTEROL SULFATE 3 ML AMPUL.NEB IH PRN ×2 (07:06→07:49)
[2020-01-21] MEDS: INSULIN LISPRO 100 UNIT/ML SUB-Q SCH ×4 (08:21→23:55)
[2020-01-21] MEDS: metFORMIN 500 MG TAB PO SCH ×2 (08:23→17:19)
[2020-01-21] MEDS ORDERED: ALBUTEROL 2.5 MG/3 ML NEBU IH PRN (09:00)
--- NOTE | 2020-01-21 09:35 | Progress Note ---
Assessment and Plan Assessment and plan: 52-year-old -[place] female with history of hypertension, type 2 diabetes, DVT, atrial fibrillation and asthma/hyperlipidemia comes in for right lower extremity swelling of 3 days duration. Patient missed her 2 days of her Eliquis dosing. Patient also has a dry cough and a fever of 101. Complaint patient complains of shortness of breath and wheezing and suffers from chronic asthma bronchitis. Denies any cold exposure. Is not been tested for: Recently. Patient has been isolating herself at home and not going out much. Wearing mask all the time. Right lower extremity pain is about 6 on a scale of 1-10 swelling is present involving the cough region. Some shortness of breath present. Which is at baseline. No chest pain. Patient being admitted for treatment of DVT and low-grade fever to rule out covid (1) DVT (deep venous thrombosis) Current Visit: Yes Status: Acute Qualifiers: DVT location: lower extremity Affected thrombotic vein of extremity: unspe cified vein of extremity Chronicity: acute Laterality: right Qualified Code(s): I82.401 - Acute embolism and thrombosis of unspecified deep veins of right lower extremity Plan to address problem: Patient initiated on Lovenox 130 mg subcu every 12 Eliquis stopped for the time being If COVID ruled out patient may be discharged on Eliquis Discussed with patient about probably going back to warfarin if indeed this is a failure of Eliquis she vehemently refuses. We had discussion about IVC filter which I do not believe is a solution for her but nevertheless we will obtain vascular input. Outpatient hematology oncology will be recommended. I have also discussed with the patient on need to have colonoscopy as she has not had one. In settings of non-provoked embolisms cancer needs to be ruled out and have discussed this extensively with the patient. (2) Person under investigation for COVID-19 Current Visit: Yes Status: Acute Plan to address problem: Coronavirus PCR ordered (3) COPD (chronic obstructive pulmonary disease) Current Visit: Yes Status: Chronic Qualifiers: Chronic bronchitis type: unspecified Plan to address problem: Continue duo nebs (4) Hypertension Current Visit: Yes Status: Chronic Qualifiers: Hypertension type: essential hypertension Qualified Code(s): I10 - Essential (primary) hypertension Plan to address problem: Continue antihypertensives (5) Noncompliance with medication regimen Current Visit: Yes Status: Chronic Plan to address problem: Patient counseled about noncompliance (6) Diabetes mellitus, type II Current Visit: No Status: Chronic Qualifiers: Diabetes mellitus complication status: without complication Qualified Code(s): E11.9 - Type 2 diabetes mellitus without complications Plan to address problem: Coverage for now and check hemoglobin A1c. Adjust medications as necessary (7) HLD (hyperlipidemia) Current Visit: Yes Status: Chronic Qualifiers: Hyperlipidemia type: mixed hyperlipidemia Qualified Code(s): E78.2 - Mixed hyperlipidemia Plan to address problem: Continue statins (8) GERD (gastroesophageal reflux disease) Current Visit: Yes Status: Chronic Qualifiers: Esophagitis presence: without esophagitis Qualified Code(s): K21.9 - Gastro-esophageal reflux disease without esophagitis Plan to address problem: Patient on PPIs (9) CHRIS (obstructive sleep apnea) Current Visit: Yes Status: Chronic Plan to address problem: CPAP as necessary (10) morbid obesity Had extensive discussion with the patient about need to lose weight patient verbalized understanding 50 minutes spent on lifestyle management counseling. (11) DVT prophylaxis Current Visit: No Status: Acute Plan to address problem: Patient already on Lovenox and GI prophylaxis History Interval history: Patient seen and examined denies any chest pain nausea vomiting or diarrhea. Denies any fever today. Patient reports that right lower extremity swelling has been going on for a few weeks. Prior to admission her Eliquis. She does not want to go back to warfarin. Hospitalist Physical - Physical exam Narrative exam: VITAL SIGNS: Reviewed. GENERAL: The patient appears normally developed, morbidly obese vital signs as documented. HEAD: No signs of head trauma. EYES: Pupils are equal. Extraocular motions intact. EARS: Hearing grossly intact. MOUTH: Oropharynx is normal. NECK: No adenopathy, no JVD. CHEST: Chest with clear breath sounds bilaterally. No wheezes, rales, or rhonchi. CARDIAC: Regular rate and rhythm. S1 and S2, without murmurs, gallops, or rubs. VASCULAR: No Edema except right lower extremity. Peripheral pulses normal and equal in all extremities. ABDOMEN: Soft, non tender and non distended. No rebound or guarding, and no masses palpated. Bowel Sounds normal. MUSCULOSKELETAL: Good range of motion of all major joints. Extremities without clubbing, cyanosis or edema except right lower extremity mildly swollen. NEUROLOGIC EXAM: Alert and oriented x 3 No focal sensory or strength deficits. Speech normal. Follows commands. PSYCHIATRIC: Mood normal. SKIN: detial exam as documented in skin assessment - Constitutional Vitals: Temp Pulse Resp BP Pulse Ox 97.3 F L 91 H 20 148/85 93 01/21/20 03:49 01/21/20 04:22 01/21/20 03:49 01/21/20 03:49 01/21/20 04:22 General appearance: Present: no acute distress, well-nourished HEART Score - HEART Score Age: 45-65 Risk factors: > 3 risk factors or hx of atherosclerotic disease Troponin: < normal limit - Critical Actions Critical Actions: 4-6 pts:12-16.6% risk of adverse cardiac event. Should be admitted Results - Labs CBC & Chem 7: 01/20/20 03:52 01/20/20 14:48 Labs: Laboratory Last Values WBC 8.8 K/mm3 (4.5-11.0) 01/20/20 03:52 RBC 4.60 M/mm3 (3.65-5.03) 01/20/20 03:52 Hgb 12.4 gm/dl (10.1-14.3) 01/20/20 03:52 Hct 38.8 % (30.3-42.9) 01/20/20 03:52 MCV 84 fl (79-97) 01/20/20 03:52 MCH 27 pg (28-32) L 01/20/20 03:52 MCHC 32 % (30-34) 01/20/20 03:52 RDW 14.0 % (13.2-15.2) 01/20/20 03:52 Plt Count 204 K/mm3 (140-440) 01/20/20 03:52 Lymph % (Auto) 31.1 % (13.4-35.0) 01/20/20 03:52 [place] % (Auto) 9.0 % (0.0-7.3) H 01/20/20 03:52 Eos % (Auto) 1.1 % (0.0-4.3) 01/20/20 03:52 Baso % (Auto) 1.0 % (0.0-1.8) 01/20/20 03:52 Lymph # 2.7 K/mm3 (1.2-5.4) 01/20/20 03:52 [place] # 0.8 K/mm3 (0.0-0.8) 01/20/20 03:52 Eos # 0.1 K/mm3 (0.0-0.4) 01/20/20 03:52 Baso # 0.1 K/mm3 (0.0-0.1) 01/20/20 03:52 Seg Neutrophils % 57.8 % (40.0-70.0) 01/20/20 03:52 Seg Neutrophils # 5.1 K/mm3 (1.8-7.7) 01/20/20 03:52 PT 13.6 Sec. (12.2-14.9) 01/20/20 03:52 INR 1.03 (0.87-1.13) 01/20/20 03:52 APTT 26.8 Sec. (24.2-36.6) 01/20/20 03:52 D-Dimer 944.54 ng/mlDDU (0-234) H 01/20/20 14:48 Sodium 138 mmol/L (137-145) 01/20/20 03:52 Potassium 4.6 mmol/L (3.6-5.0) 01/20/20 03:52 Chloride 97.5 mmol/L (98-107) L 01/20/20 03:52 Carbon Dioxide 27 mmol/L (22-30) 01/20/20 03:52 Anion Gap 18 mmol/L 01/20/20 03:52 BUN 15 mg/dL (7-17) 01/20/20 03:52 Creatinine 0.8 mg/dL (0.7-1.2) 01/20/20 03:52 Estimated GFR > 60 ml/min 01/20/20 03:52 BUN/Creatinine Ratio 19 % 01/20/20 03:52 Glucose 250 mg/dL (65-100) H 01/20/20 14:48 POC Glucose 247 (70-105) H 01/21/20 08:20 Calcium 9.4 mg/dL (8.4-10.2) 01/20/20 03:52 Ferritin 110.9 ng/mL (13.0-400.0) 01/20/20 14:48 Total Bilirubin 0.50 mg/dL (0.1-1.2) 01/20/20 03:52 AST 27 units/L (5-40) 01/20/20 03:52 ALT 25 units/L (7-56) 01/20/20 03:52 Alkaline Phosphatase 114 units/L (35-129) 01/20/20 03:52 Lactate Dehydrogenase 153 units/L (91-180) 01/20/20 14:48 C-Reactive Protein 0.90 mg/dL (0.00-1.30) 01/20/20 14:48 Total Protein 7.6 g/dL (6.3-8.2) 01/20/20 03:52 Albumin 4.4 g/dL (3.9-5) 01/20/20 03:52 Albumin/Globulin Ratio 1.4 % 01/20/20 03:52 Procalcitonin < 0.05 ng/mL (<0.15) 01/20/20 14:48 Kidd/IV: IV Catheter Type [Right INT / Saline Lock Antecubital] IV Catheter Type [Right INT / Saline Lock Forearm] Active Medications - Current Medications Current Medications: Generic Name Dose Route Start Last Admin Trade Name Freq PRN Reason Stop Dose Admin Albuterol 2.5 mg 01/21/20 09:00 Proventil IH Q4HRT PRN Shortness Of Breath Atorvastatin Calcium 40 mg 01/20/20 22:00 01/20/20 23:47 Lipitor PO 40 mg QHS TORSTEN Administration Diltiazem HCl 180 mg 01/21/20 10:00 Cardizem Cd PO QDAY [facility] Enoxaparin Sodium 100 mg 01/21/20 10:00 Enoxaparin SUB-Q Q12HR TORSTEN Enoxaparin Sodium 30 mg 01/21/20 10:00 Enoxaparin SUB-Q Q12HR TORSTEN Ceftriaxone Sodium 2 gm in 100 mls @ 200 mls/hr 01/21/20 10:00 Rocephin/Ns 2 Gm/100 Ml IV Q24HR [facility] Protocol Insulin Human Lispro 0 unit 01/21/20 07:30 01/21/20 08:21 Humalog SUB-Q 4 unit ACHS TORSTEN Administration Protocol Metformin HCl 500 mg 01/21/20 08:00 01/21/20 08:23 Glucophage PO Not Given BIDDIAB [facility] Pantoprazole Sodium 40 mg 01/21/20 10:00 Protonix PO QDAY [facility]
[2020-01-21] MEDS: ENOXAPARIN 100 MG/1 ML INJ SUB-Q SCH ×2 (09:56→23:54)
[2020-01-21] MEDS: PANTOPRAZOLE 40 MG TAB PO SCH (09:56)
[2020-01-21] MEDS: ENOXAPARIN 30 MG/0.3 ML INJ SUB-Q SCH ×2 (09:56→23:55)
[2020-01-21] MEDS: dilTIAZem CD 180 MG CAP PO SCH (09:57)
[2020-01-21] MEDS: cefTRIAXone/NS 2 GM/100 ML 2 GM/100 ML BAG IV SCH (09:57)
--- NOTE | 2020-01-21 11:31 | Event Note ---
Date: 01/21/[address] Valladares. On review of the chart and and discussing with [facility], no need for IVC filter insertion at this time. Patient stopped OAC prior to admission but symptoms may have started prior to stopping meds. Patient may require starting warfarin and be referred to a Software Engineer [employer] for proper work-up. Please call for any questions/concerns.
[2020-01-21] MEDS ORDERED: MELATONIN 5 MG TAB PO PRN (20:09)
[2020-01-21] MEDS ORDERED: PHENOL 1.4% 177 ML BOTTLE MM PRN (20:09)
[2020-01-21] MEDS: oxyCODONE /ACETAMINOPHEN 5-325MG TAB PO PRN (23:56)
[2020-01-22] MEDS: oxyCODONE /ACETAMINOPHEN 5-325MG TAB PO PRN (05:08)
[2020-01-22] MEDS: metFORMIN 500 MG TAB PO SCH ×2 (08:18→08:20)
[2020-01-22] MEDS: PANTOPRAZOLE 40 MG TAB PO SCH (10:07)
[2020-01-22] MEDS: ENOXAPARIN 30 MG/0.3 ML INJ SUB-Q SCH (10:07)
[2020-01-22] MEDS: cefTRIAXone/NS 2 GM/100 ML 2 GM/100 ML BAG IV SCH (10:07)
[2020-01-22] MEDS: ENOXAPARIN 100 MG/1 ML INJ SUB-Q SCH (10:08)
[2020-01-22] MEDS: dilTIAZem CD 180 MG CAP PO SCH (10:09)
[2020-01-22] MEDS: INSULIN LISPRO 100 UNIT/ML SUB-Q SCH (10:14)
--- NOTE | 2020-01-22 10:29 | Consultation ---
History of Present Illness - Reason for Consult Consult date: 01/22/20 DVT RLE Requesting physician: ERNST PATEL - History of Present Illness 52-year-old -[place] female with history of hypertension, type 2 diabetes, DVT, atrial fibrillation and asthma/hyperlipidemia comes in for right lower extremity swelling of 3 days duration. Patient missed her 2 days of her Eliquis dosing. Patient also has a dry cough and a fever of 101. Complaint patient complains of shortness of breath and wheezing and suffers from chronic asthma bronchitis. Denies any cold exposure. Is not been tested for: Recently. Patient has been isolating herself at home and not going out much. Wearing mask all the time. Right lower extremity pain is about 6 on a scale of 1-10 swelling is present involving the cough region. Some shortness of breath present. Which is at baseline. No chest pain. Patient being admitted for treatment of DVT and low-grade fever to rule out covi d Vascular consulted for right lower extremity DVT. Patient reports 3-year history of swelling of the right lower extremity, was placed on anticoagulation 2 years ago for atrial fibrillation, had trauma to her right lower extremity in May. Her swelling worsened over the last 2 months, she was treated with steroid injection 3 weeks ago, and 2 weeks ago, her swelling worsened more and then she presented to the hospital. CT pulmonary angiogram demonstrates no pulmonary emboli. Right lower extremity DVT study demonstrates nonocclusive right superficial femoral vein DVT. Reviewed DVT study. Past Medical History Hypertension: Yes Diabetes: Yes Headaches / Migraines Asthma: Yes COPD: Yes "Enlarged heart". gastric ulcer sleep apnea Surgical History Past Surgical History?: Yes Additional Surgical History: tubal ligation Social History Smoking Status: Never Smoker Substance Use Type: Alcohol Family history HTN Medications and Allergies Allergies Allergy/AdvReac Type Severity Reaction Status Date / Time amlodipine Allergy Coughing Verified 09/09/18 17:29 hydrochlorothiazide Allergy Shortness Verified 09/09/18 17:29 of Breath Home Medications Medication Instructions Recorded Confirmed Last Taken Type Albuterol INH(or & Nicu Only) 2 puff IH QID PRN #1 inhalation 09/13/18 01/21/20 10/13/18 20:00 Rx [ProAir HFA Inhaler] Ipratropium/Albuterol Sulfate 1 ampul INHALATION Q4HR PRN #30 09/13/18 01/20/20 2 Days Ago Rx [DUONEB *Not for PRN Use*] ampul.neb ~01/18/20 dilTIAZem CD [Cardizem CD] 180 mg PO QDAY #30 capsule 09/13/18 01/20/20 2 Days Ago Rx ~01/18/20 Apixaban [Eliquis] 5 mg PO Q12HR #60 tablet 10/17/18 01/20/20 2 Weeks Ago Rx ~01/06/20 AtorvaSTATin [Lipitor] 40 mg PO QHS #30 tab 10/17/18 01/20/20 2 Weeks Ago Rx ~01/06/20 Pantoprazole [Protonix] 40 mg PO QDAY #30 tablet 10/17/18 01/20/20 2 Days Ago Rx ~01/18/20 Active Meds: Active Medications Albuterol (Proventil) 2.5 mg IH Q4HRT PRN PRN Reason: Shortness Of Breath Atorvastatin Calcium (Lipitor) 40 mg PO QHS [facility] Last Admin: 01/21/20 23:56 Dose: 40 mg Documented by: Diltiazem HCl (Cardizem Cd) 180 mg PO QDAY [facility] Last Admin: 01/22/20 10:09 Dose: 180 mg Documented by: Enoxaparin Sodium (Enoxaparin) 100 mg SUB-Q Q12HR [facility] Last Admin: 01/22/20 10:08 Dose: 100 mg Documented by: Enoxaparin Sodium (Enoxaparin) 30 mg SUB-Q Q12HR [facility] Last Admin: 01/22/20 10:07 Dose: 30 mg Documented by: Ceftriaxone Sodium (Rocephin/Ns 2 Gm/100 Ml) 2 gm in 100 mls @ 200 mls/hr IV Q24HR [facility]; Protocol Last Admin: 01/22/20 10:07 Dose: 200 mls/hr Documented by: Insulin Human Lispro (Humalog) 0 unit SUB-Q ACHS [facility]; Protocol Last Admin: 01/22/20 10:14 Dose: 3 unit Documented by: Melatonin (Melatonin) 5 mg PO QHS PRN PRN Reason: Sleep Last Admin: 01/21/20 23:56 Dose: 5 mg Documented by: Metformin HCl (Glucophage) 500 mg PO BIDDIAB [facility] Last Admin: 01/22/20 08:20 Dose: Not Given Documented by: Oxycodone/Acetaminophen (Percocet 5/325) 1 tab PO Q8H PRN PRN Reason: Pain, Moderate (4-6) Last Admin: 01/22/20 05:08 Dose: 1 tab Documented by: Pantoprazole Sodium (Protonix) 40 mg PO QDAY [facility] Last Admin: 01/22/20 10:07 Dose: 40 mg Documented by: Phenol (Chloraseptic) 1 spray MM PRN PRN PRN Reason: Sore Throat Last Admin: 01/21/20 20:23 Dose: 1 spray Documented by: Review of Systems All systems: negative (see HPI) Exam - Constitutional Vitals: Temp Pulse Resp BP Pulse Ox 98.5 F 76 20 152/81 93 01/22/20 05:49 01/22/20 05:49 01/22/20 05:49 01/22/20 10:09 01/22/20 05:49 General appearance: Present: no acute distress, obese - EENT Eyes: Present: EOM intact ENT: hearing intact - Neck Neck: Present: supple - Respiratory Respiratory effort: normal - Extremities Extremities: pulses intact (Bilateral dorsalis pedis pulses bounding), normal temperature, normal color Extremity abnormal: edema (2+ bilaterally) - Abdominal General gastrointestinal: Present: other (Obese) - Psychiatric Psychiatric: appropriate mood/affect, cooperative Results - Labs CBC & Chem 7: 01/20/20 03:52 01/20/20 14:48 Labs: Abnormal lab results 01/21/20 01/21/20 01/21/20 Range/Units 11:21 16:25 23:30 POC Glucose 262 H 196 H 240 H (70-105) 01/22/20 Range/Units 09:10 POC Glucose 188 H (70-105) - Imaging and Cardiology CT scan - chest: report reviewed, image reviewed Venous US: report reviewed, image reviewed Assessment and Plan 54-year-old female who has morbid obesity, multiple medical issues including atrial fibrillation on anticoagulation for 2 years with presentation with fever and right lower extremity nonocclusive DVT. No evidence of pulmonary embolism on CT scan. Coronavirus PCR negative. Ultrasound demonstrates nonocclusive right lower extremity DVT. Reviewed ultrasound, and I am not sure if this DVT is real. Patient is quite obese sofya coronel the ultrasound exam complicated and technically difficult. Placed order for repeat ultrasound exam today with different technologist. Regardless, patient needs to be on anticoagulation for atrial fibrillation which will cross cover any lower extremity DVT. Her compliance with anticoagulation is suboptimal, but she will attempt to be more consistent with her medication administration. No need for any acute intervention of the right lower extremity. May refer her to dog or animal sitter as outpatient if positive. Based on ultrasound results later today, if there is still concern/report demonstrating DVT, recommend 10 mg Eliquis p.o. twice daily x7 days, then 5 mg p.o. twice daily afterwards. Otherwise, if the ultrasound is negative, 5 mg p.o. twice daily. Follow-up in office in 2 weeks. Card provided.
--- NOTE | 2020-01-22 10:47 | Discharge Summary ---
Providers - Providers Date of Admission: 01/20/20 14:53 Attending physician: ERNST PATEL MD 01/21/20 09:35 Consult to Physician [CONS] Routine Comment: Consulting Provider: DERRICK ESCALONA Physician Instructions: Reason For Exam: evaluate for IVC filter ?Failed eliquis Primary care physician: ELVIE PONCE Hospitalization Reason for admission: Shortness of breath Condition: Stable Hospital course: 52-year-old -[place]ish female with history of hypertension, type 2 diabetes, DVT, atrial fibrillation and asthma/hyperlipidemia comes in for right lower extremity swelling of 3 days duration. Patient missed her 2 days of her Eliquis dosing. Patient also has a dry cough and a fever of 101. Complaint patient complains of shortness of breath and wheezing and suffers from chronic asthma bronchitis. Denies any cold exposure. Is not been tested for: Recently. Patient has been isolating herself at home and not going out much. Wearing mask all the time. Right lower extremity pain is about 6 on a scale of 1-10 swelling is present involving the cough region. Some shortness of breath present. Which is at baseline. No chest pain. Patient being admitted for treatment of DVT and low-grade fever to rule out covid Patient was evaluated on admission initially there was a concern that patient has a DVT on the right lower extremity repeat imaging study today did not verify or showed a DVT may be at best the Schuler's cyst. Patient is to be discharged will continue on Eliquis which she states that she has refused at home. She also ruled out for the novel coronavirus. Her breathing is improved. She does have some pain on that right lower extremity for which she has been treated with pain medication and will continue to follow with her regular doctor I did encourage her to have outpatient colonoscopy as she is past the age 39 initial screening she verbalized understanding. Weight loss counseling was provided. 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 (1) right lower extremity pain secondary to Schuler's cyst (2) Person under investigation for [id number] out (3) COPD (chronic obstructive pulmonary disease) (4) Hypertension (5) Noncompliance with medication regimen (6) Diabetes mellitus, type II (7) HLD (hyperlipidemia) (8) GERD (gastroesophageal reflux disease) (9) CHRIS (obstructive sleep apnea) (10) morbid obesity Disposition: DC- TO HOME OR SELFCARE Time spent for discharge: 35 minutes Core Measure Documentation - Palliative Care Palliative Care/ Comfort Measures: Not Applicable - Core Measures Any of the following diagnoses?: none Exam - Physical Exam Narrative exam: VITAL SIGNS: Reviewed. GENERAL: The patient appears normally developed, morbidly obese vital signs as documented. HEAD: No signs of head trauma. EYES: Pupils are equal. Extraocular motions intact. EARS: Hearing grossly intact. MOUTH: Oropharynx is normal. NECK: No adenopathy, no JVD. CHEST: Chest with clear breath sounds bilaterally. No wheezes, rales, or rhonchi. CARDIAC: Regular rate and rhythm. S1 and S2, without murmurs, gallops, or rubs. VASCULAR: No Edema except right lower extremity. Peripheral pulses normal and equal in all extremities. ABDOMEN: Soft, non tender and non distended. No rebound or guarding, and no masses palpated. Bowel Sounds normal. MUSCULOSKELETAL: Good range of motion of all major joints. Extremities without clubbing, cyanosis or edema except right lower extremity mildly swollen. NEUROLOGIC EXAM: Alert and oriented x 3 No focal sensory or strength deficits. Speech normal. Follows commands. PSYCHIATRIC: Mood normal. SKIN: detial exam as documented in skin assessment - Constitutional Vitals: Temp Pulse Resp BP Pulse Ox 98.5 F 76 20 152/81 93 01/22/20 05:49 01/22/20 05:49 01/22/20 05:49 01/22/20 10:09 01/22/20 05:49 Plan Activity: advance as tolerated, fall precautions Diet: low fat Special Instructions: record daily weights, record daily BP diary Follow up with: MARIEL ROSARIO DO [Staff Physician] - 7 Days MOISES TOBAR MD [Staff Physician] - 7 Days ELVIE PONCE MD [Primary Care Provider] - 3-5 Days DERRICK ESCALONA MD [Staff Physician] - 14 Days Prescriptions: Apixaban [Eliquis] 5 mg PO Q12HR #60 tablet traMADoL [Ultram] 50 mg PO Q6HR PRN #14 tablet PRN Reason: Pain
[2020-01-22 13:01] VITALS: BP 132/91
--- NOTE | 2020-01-22 13:58 | Vascular Lab Report ---
DUPLEX DOPPLER LOWER EXTREMITY VEINS, RIGHT INDICATION / CLINICAL INFORMATION: repeat ultrasound. DVT ; reassess, right lower extremity edema, re cent history of right renal vein DVT TECHNIQUE: Duplex doppler imaging was performed through the veins of the right lower extremity using venous compression and other maneuvers. COMPARISON: 01/20/2020 FINDINGS: COMMON FEMORAL VEIN: Negative. FEMORAL VEIN: DVT reported on prior study in the superficial femoral vein is no longer obvious. POPLITEAL VEIN: Negative. CALF VEINS: Negative. ADDITIONAL FINDINGS: A 5.3 cm mildly complex popliteal cyst is noted. Mild diffuse soft tissue thicke ingrid is seen in the knee area. IMPRESSION: No sonographic evidence for DVT. Popliteal cyst. Signer Name: Dalton Amezquita MD Signed: 01/22/2020 1:53 PM Workstation Name: [id number]
== END 2020-01-22 15:00 | disposition home or self-care (01) ==
LOC: ED 02:11 → 3A 14:53
PROVIDERS: ADMIT Internal Medicine; ATTEND Internal Medicine
DX: I82.411 Acute embolism and thrombosis of right femoral vein (principal); Z20.828 Contact with and (suspected) exposure to other viral communicable diseases; J44.9 Chronic obstructive pulmonary disease, unspecified; J45.901 Unspecified asthma with (acute) exacerbation; I10 Essential (primary) hypertension; E11.9 Type 2 diabetes mellitus without complications; E78.5 Hyperlipidemia, unspecified; E66.01 Morbid (severe) obesity due to excess calories; K21.9 Gastro-esophageal reflux disease without esophagitis; G47.33 Obstructive sleep apnea (adult) (pediatric); G43.909 Migraine, unspecified, not intractable, without status migrainosus; Z91.14 Patient's other noncompliance with medication regimen; Z87.19 Personal history of other diseases of the digestive system; Z98.51 Tubal ligation status; Z68.41 Body mass index [BMI] 40.0-44.9, adult; Z79.4 Long term (current) use of insulin
CPT/HCPCS: 36415; 71045; 71275; 80053; 82728; 82947; 82962; 83615; 84145; 85025; 85379; 85610; 85730; 86140; 93005; 93971; 94644; 96365; 96366; 96372; 96375; 99285; A9270; G0378; J0696; J1650; J2270; J2405; J2930; Q9967; U0003; J1815